=== PATIENT | male | born 1950 | race Asian ===

== ENCOUNTER → 2016-11-30 | Day surgery (SDC) | payer MEDICARE, OTHER ==
[2016-11-30] VITALS (9 sets, daily range): BP systolic 119–131; BP diastolic 62–76
[~2016-11-30] VITALS: Ht 162.6 cm; Wt 59.0 kg
[~2016-11-30] MED LIST: AMLODIPINE BESYL5 MG ORAL; LIPITOR10 MG ORAL; LISINOPRIL20 MG ORAL; LISINOPRIL5 MG ORAL; LOVASTATIN40 MG ORAL; METFORMIN HCL850 M1 ORAL; Propofol 10mg/ml 20ml IV ONE; VIREAD300 MG ORAL; VITAMIN D1000 UNI1 ORAL
--- NOTE | 2016-11-30 09:22 | Pre-Procedure Note/Attestation ---
Pre-Procedure Note/Attestation Complete Prior to Procedure Planned Procedure: not applicable Procedure Narrative: egd/colonoscopy Indications for Procedure Pre-Operative Diagnosis: adenocarcinoma Attestation I attest that I discussed the nature of the procedure; its benefits; risks and complications; and alternatives (and the risks and benefits of such alternatives ), prior to the procedure, with the patient (or the patient's legal cordage sales representative). I attest that, if there was a reasonable possibility of needing a blood transfusion, the patient (or the patient's legal cordage sales representative) was given the [facility] standardized written summary, pursuant to the Meño Sal Blood Safety Act ([place] Health and Safety Code # 1645, as amended). I attest that I re-evaluated the patient just prior to the surgery and that there has been no change in the patient's H&P, except as documented below: ADAM SIDHU Nov 30, 2016 09:22
--- NOTE | 2016-11-30 09:23 | Short Stay Surgery H&P ---
History of Present Illness History of Present Illness Chief Complaint carcinoma HPI Son Diana Alejandro is a 66 year old male who was admitted on for Liver Cancer Patient History Allergies: Coded Allergies: No Known Allergies (Unverified , 11/30/16) PAST MEDICAL HISTORY: (1) HTN (hypertension) (2) DM Past Surgeries: Social History: Medication History Scheduled Amlodipine Besylate* (Amlodipine Besylate*), 5 MG ORAL DAILY, (Reported) Atorvastatin Calcium* (Lipitor*), 10 MG ORAL DAILY, (Reported) Cholecalciferol (Vitamin D3)* (Vitamin D*), 2,000 UNITS ORAL DAILY, (Reported) Lisinopril (Lisinopril*), 5 MG ORAL DAILY, (Reported) Lisinopril (Lisinopril*), 40 MG ORAL DAILY, (Reported) Lovastatin (Lovastatin), 40 MG ORAL BEDTIME, (Reported) Metformin Hcl* (Metformin Hcl*), 850 MG ORAL DAILY, (Reported) Tenofovir Disoproxil Fumarate* (Viread*), 300 MG ORAL DAILY, (Reported) Review of Systems Cardiovascular: Reports: no symptoms Respiratory: Reports: no symptoms Skeletal: Reports: no symptoms Gastrointestinal: Reports: no symptoms Genitourinary: Reports: no symptoms Neurologic: Reports: no symptoms Endocrine: Reports: no symptoms Hematologic: Reports: no symptoms Physical Exam Vital Signs Last Vital Signs Date Time Temp Pulse Resp B/P Pulse Ox O2 Delivery O2 Flow Rate FiO2 11/30/16 08:25 98.9 72 18 131/62 97 Room Air Plan Plan of Care egd/colonoscopy Final Diagnosis: Attestation Are the patient's medical conditions optimized for surgery? Attestation Response: yes ADAM SIDHU Nov 30, 2016 09:23
--- NOTE | 2016-11-30 09:37 | Anethesia Preoperative Eval ---
Anesthesia Pre-op PMH/ROS General Date of Evaluation: Nov 30, 2016 Time of Evaluation: 09:17 Anesthesiologist: pilo ASA Score: ASA 3 Mallampati Score Class I : Soft palate, uvula, fauces, pillars visible Class II: Soft palate, uvula, fauces visible Class III: Soft palate, base of uvula visible Class IV: Only hard plate visible Mallampati Classification: Class II Surgeon: eleno Diagnosis: hepatic CA Surgical Procedure: egd/colonoscopy Anesthesia History: none Allergies: Coded Allergies: No Known Allergies (Unverified , 11/30/16) Past Medical History Cardiovascular: Reports: HTN Endocrine: Reports: DM Anesthesia Pre-op Phys. Exam Physician Exam Last Vital Signs Date Time Temp Pulse Resp B/P Pulse Ox O2 Delivery O2 Flow Rate FiO2 11/30/16 08:25 98.9 72 18 131/62 97 Room Air Airway Exam Mallampati Score: Class II Teeth: missing Anesthesia Pre-op A/P Risk Assessment & Plan Plan: propofol Status Change Before Surgery: Temo Hardy MD Nov 30, 2016 09:37
--- NOTE | 2016-11-30 09:39 | Immediate Post-Op Evaluation ---
Immediate Post-Op Evalulation Immediate Post-Op Evalulation Date of Evaluation: Nov 30, 2016 Time of Evaluation: 10:17 IV Fluids: 600 Blood Pressure Systolic: 121 Blood Pressure Diastolic: 74 Pulse Rate: 69 Respiratory Rate: 17 O2 Sat by Pulse Oximetry: 97 Temperature (Fahrenheit): 97.4 Pain Score (1-10): 0 Nausea: No Vomiting: No Complications none Patient Status: awake, patent, none Hydration Status: adequate Temo Michel MD Nov 30, 2016 09:39
--- NOTE | 2016-11-30 09:41 | 48 Hour Post Anesthesia Eval ---
Post Anesthesia Evaluation Date of Evaluation: Nov 30, 2016 Time of Evaluation: 10:50 Blood Pressure Systolic: 127 0: 75 Pulse Rate: 71 Respiratory Rate: 18 Temperature (Fahrenheit): 97.1 O2 Sat by Pulse Oximetry: 99 Airway: patent Nausea: No Vomiting: No Pain Intensity: 0 Hydration Status: adequate Cardiopulmonary Status: stable Mental Status/LOC: patient returned to baseline Follow-up Care/Observations: n/a Post-Anesthesia Complications: tolerated well Follow-up care needed: ready to discharge Temo Michel MD Nov 30, 2016 09:41
--- NOTE | 2016-11-30 10:04 | Endoscopy Procedure Note ---
Endoscopy Procedure Note Indication for Procedure: malegnancy Procedures Performed: EGD, colonoscopy Operative Findings/Diagnosis: gastritis, 2 polyps Specimen: yes Pt Tolerated Procedure Well: Yes Estimated Blood Loss: none Anesthesiologist: pilo Anesthesia: MAC Implant(s) used?: No 50 yrs or older w/o bx or poly: No 10yrs. F/U not recommended: Yes If not recommended, why?: Above average risk 10 yrs. F/U needed: Yes 18 years or older w/prev. colo: Yes <3yrs. since last colonoscopy: No ADAM SIDHU Nov 30, 2016 10:04
--- NOTE | 2016-11-30 18:18 | Procedure Note ---
DATE OF PROCEDURE: 11/30/2016 SURGEON: Arun Lynn M.D. PROCEDURE: Upper endoscopy with cold biopsy and colonoscopy with biopsy. ANESTHESIOLOGIST: Temo Michel M.D. INSTRUMENT: Olympus adult flexible colonoscope and endoscope. INDICATION: Unknown source of adenocarcinomatosis. REASON FOR PROCEDURE: The procedure, risks, benefits, and possible consequences, including hemorrhage, aspiration, perforation and infection, and alternative treatments, were explained to the patient/legal guardian by Dr. Arun Lynn and the patient/legal guardian understood and accepted these risks. DESCRIPTION OF PROCEDURE: After informed consent was obtained and the patient was adequately sedated, first Olympus upper endoscope was advanced from mouth into the second portion of the duodenum and retroflexion was performed in the stomach. The patient had diffuse gastritis. Random biopsy from antrum was obtained to rule out H. pylori infection. Otherwise, the rest of the examination was grossly within normal limits. At this time, the upper endoscope was retrieved and the patient was turned over for colonoscopy. First, a rectal exam was performed, which was positive for internal hemorrhoid. Then, the scope was advanced from the rectum into the cecum, then stopped in the terminal ileum. Quality of prep was good. The patient had normal terminal ileum. The patient had one diminutive polyp in the hepatic flexure area, removed with a cold biopsy forceps technique. In the proximal transverse colon, there was an area which was tattooed, most likely from prior polypectomies, but there was some little bit of retained polypoid material in that area, which we biopsied. The rest of the exam grossly within normal limit. Retroflexion of the rectum showed evidence of medium-sized internal hemorrhoids. SUMMARY OF FINDINGS: 1. Gastritis, status post biopsy. 2. There was an area in the proximal transverse colon with tattoo from prior polypectomy with some retained adenomatous polyp, which was biopsied. 3. One diminutive polyp in the hepatic flexure area. 4. Internal hemorrhoids. RECOMMENDATIONS: 1. Follow up biopsy and treat accordingly. 2. Recommend possible capsule endoscopy as an outpatient to rule out a small intestine malignancy. I would like to thank Dr. Tony Tai, for this kind referral. Arun Sherrell Lynn DR: DIRK JOB#: [id number] CC: Tony Tai M.D.
== END | disposition home or self-care (01) ==
LOC: GAS 07:40
DX: C80.1 Malignant (primary) neoplasm, unspecified (principal); K29.50 Unspecified chronic gastritis without bleeding; B96.81 Helicobacter pylori [H. pylori] as the cause of diseases classified elsewhere; K64.8 Other hemorrhoids; K63.5 Polyp of colon; I10 Essential (primary) hypertension; E11.9 Type 2 diabetes mellitus without complications
CPT/HCPCS: 43239; 45380; 82962; 93005; J2704; 94003; 94150

== ENCOUNTER → 2016-12-06 | Outpatient (CLI) | payer MEDICARE, OTHER ==
[~2016-12-06] MED LIST changes: -Propofol 10mg/ml 20ml IV ONE
[2016-12-06 16:32] VITALS: BP 107/64
--- NOTE | 2016-12-13 21:28 | Procedure Note ---
DATE OF PROCEDURE: 12/06/2016 CHIEF COMPLAINT: Metastatic CA and anemia. SURGEON: Arun Kauffman M.D. PROCEDURE: Capsule Endoscopy. PROCEDURES: The patient swallowed the camera. The camera spent about 12 minutes in the stomach before entering the small intestine. The camera spent 4 hour and 29 minutes in the small intestine before entering the large intestine. There was no evidence of any active bleeding. No obvious mass. No obvious tumor. No obvious any other pathology was seen on this study. The patient, as I mentioned, had the capsule pass to the colon in about 4 hours and 29 minutes. RECOMMENDATIONS: At this time, there is no obvious small-bowel mass seen on this capsule endoscopy, although these tests are not 100% and can miss if there an absolute area or if the tumor is very small, but at this time there is no obvious bleeding and no obvious mass seen on this examination. Thank you, , for this kind referral. Arun Lynn M.D. DR: KORY JOB#: [id number] CC: Reza Yoder M.D.; Fax#: [phone] Steele M.D.
== END | disposition home or self-care (01) ==
LOC: PAN 11:43
DX: D64.9 Anemia, unspecified (principal); C80.1 Malignant (primary) neoplasm, unspecified

== ENCOUNTER → 2016-12-26 | Outpatient (CLI) | payer MEDICARE, OTHER ==
[2016-12-26 14:52] VITALS: BP 125/66
--- NOTE | 2016-12-26 15:12 | GI Progress Note ---
Assessment/Plan Problems: (1) Abdominal pain ICD Codes: R10.9 - Unspecified abdominal pain SNOMED: 65523345 (2) Constipation ICD Codes: K59.00 - Constipation, unspecified SNOMED: 09773605 (3) Diarrhea ICD Codes: R19.7 - Diarrhea, unspecified SNOMED: 19715547 Status: stable Status Narrative Seen with Dr. Lynn. Assessment/Plan SB capsule reviewed with patient. >> unremarkable rx Dexilant RTC prn Subjective Subjective abdominal pain, around umbilical area 03/02. alternating constipation and diarrhea just came from chemo tx Objective Last 24 Hour Vital Signs Date Time Temp Pulse Resp B/P Pulse Ox O2 Delivery O2 Flow Rate FiO2 12/26/16 14:52 98.4 80 16 125/66 97 General Appearance: no apparent distress, alert Cardiovascular: normal rate Respiratory/Chest: normal breath sounds, no respiratory distress Abdominal Exam: normal bowel sounds, non tender, soft Extremities: normal range of motion Objective Endoscopy Procedure Note Indication for Procedure: malegnancy Procedures Performed: EGD, colonoscopy Operative Findings/Diagnosis: gastritis, 2 polyps ADAM LYNN - Nov 30, 2016 10:04 #H Pylori + #Capsule review Radha Fernández N.P. Dec 26, 2016 15:12
== END | disposition home or self-care (01) ==
LOC: PAN 14:20
DX: R10.9 Unspecified abdominal pain (principal); K59.00 Constipation, unspecified; R19.7 Diarrhea, unspecified; Z86.010 Personal history of colon polyps
CPT/HCPCS: 99211

== ENCOUNTER 2018-03-06 14:43 | Outpatient (CLI) | payer MEDICARE, OTHER ==
--- NOTE | 2018-03-07 09:33 | GI Initial Consult Note ---
History of Present Illness General Date patient seen: Mar 06, 2018 Time patient seen: 15:00 Referring physician: ANTONIO Reason for Consultation: PEG EVALUATION Present Illness HPI 68 year old male patient, whom been diagnosis with liver cancer presents today for evaluation of TPN vs PEG. Has history of EGD/colonoscopy/SBCE all last year , summary noted below. Per family, the patient is unable to tolerate PO intake. In addition, he presents abdominal pain and constipation. The patient is planned to undergo radiation, and/or amino acid therapy for his liver cancer. This patient is a fall risk, BIB both his daughters. SUMMARY OF FINDINGS - EGD/colonoscopy 2017: 1. Gastritis, status post biopsy. 2. There was an area in the proximal transverse colon with tattoo from prior polypectomy with some retained adenomatous polyp, which was biopsied. 3. One diminutive polyp in the hepatic flexure area. 4. Internal hemorrhoids. SBCE summary 2017: At this time, there is no obvious small-bowel mass seen on this capsule endoscopy, although these tests are not 100% and can miss if there an absolute area or if the tumor is very small, but at this time there is no obvious bleeding and no obvious mass seen on this examination. Home Meds Reported Medications Cholecalciferol (Vitamin D3)* (VITAMIN D*) 1,000 Unit Tablet, 2000 UNITS ORAL DAILY, #30 TAB 0 Refills 11/30/16 Atorvastatin Calcium* (LIPITOR*) 10 Mg Tablet, 10 MG ORAL DAILY, #30 TAB 0 Refills 11/30/16 Lisinopril (LISINOPRIL*) 20 Mg Tablet, 40 MG ORAL DAILY, TAB 11/30/16 Lisinopril (LISINOPRIL*) 5 Mg Tablet, 5 MG ORAL DAILY, TAB 11/30/16 Amlodipine Besylate* (AMLODIPINE BESYLATE*) 5 Mg Tablet, 5 MG ORAL DAILY, TAB 11/30/16 Lovastatin (LOVASTATIN) 40 Mg Tablet, 40 MG ORAL BEDTIME, #30 TAB 0 Refills 11/30/16 Metformin Hcl* (METFORMIN HCL*) 850 Mg Tablet, 850 MG ORAL DAILY, TAB 11/30/16 Tenofovir Disoproxil Fumarate* (VIREAD*) 300 Mg Tablet, 300 MG ORAL DAILY, #30 TAB 0 Refills 11/30/16 Med list reviewed/reconciled: Yes Allergies: Coded Allergies: No Known Allergies (Unverified , 11/30/16) Patient History Limited by: language barrier History Provided By: Family Member, Medical Record PMH Narrative HTN Hepatitis B Hemorrhoids HCC Social History: Reports: smoking - quit 20 years ago Review of Systems All Other Systems: negative except mentioned in HPI Physical Exam T 96.5 BP 116/67 P 91 94 RA Sp02 EP Interpretation: reviewed, normal General Appearance: no apparent distress, thin Head: normocephalic EENT: PERRL/EOMI, normal ENT inspection Neck: supple Respiratory: normal breath sounds, no respiratory distress Cardiovascular: normal rate Gastrointestinal: normal inspection, non tender, soft, normal bowel sounds, non -distended Rectal: deferred Genitourinary: deferred Musculoskeletal: normal inspection, back normal Neurologic: normal inspection, alert, oriented x3, responsive Psychiatric: normal inspection, judgement/insight normal, memory normal Skin: normal inspection, normal color, no rash, warm/dry, palpation normal, well hydrated Lymphatic: normal inspection, no adenopathy GI: Plan Problems: (1) HCC (hepatocellular carcinoma) (2) Hepatitis B (3) Dysphagia (4) PEG (percutaneous endoscopic gastrostomy) adjustment/replacement/removal (5) Hemorrhoid (6) Constipation (7) HTN (hypertension) Plan d/w with family that PEG will be more suitable for the patient instead of TPN, the family as agreed to placement. PEG to be scheduled 03/10/18. - NPO @ [place] day prior to procedure explained to family member. CXR ordered for pulmonary congestion r/o pneumonia Seen with Dr. Lynn. Thank you for this patient referral. The patient was seen and examined at bedside and all new and available data was reviewed in the patients chart. I agree with the above findings, impression and plan. (Patient seen earlier today. Signature stamp does not reflect patient encounter time.). - MD Jolene López AnhPatrick REACTOR FUELING SUPERVISOR Mar 07, 2018 09:33
== END 2018-03-06 15:15 | disposition home or self-care (01) ==
LOC: PAN 14:43
DX: R10.9 Unspecified abdominal pain (principal); C22.7 Other specified carcinomas of liver; B19.10 Unspecified viral hepatitis B without hepatic coma; R13.10 Dysphagia, unspecified; K64.9 Unspecified hemorrhoids; K90.0 Celiac disease; I10 Essential (primary) hypertension; Z93.1 Gastrostomy status; K59.00 Constipation, unspecified; K29.70 Gastritis, unspecified, without bleeding; Z86.010 Personal history of colon polyps; Z87.891 Personal history of nicotine dependence
CPT/HCPCS: 99202

== ENCOUNTER 2018-03-10 08:14 | Day surgery (SDC) | payer MEDICARE, MEDICAID ==
[2018-03-10] VITALS (8 sets, daily range): BP systolic 110–140; BP diastolic 68–84
[~2018-03-10] VITALS: Ht 162.6 cm; Wt 45.4 kg
[~2018-03-10 08:14] MED LIST changes: +LEVOFLOXACIN500 MG ORAL
[2018-03-10] MEDS ORDERED: Midazolam 2mg/2ml Inj ONE (09:00)
[2018-03-10] MEDS ORDERED: Lidocaine 1% MPF 10mg/ml 5ml ONE (09:00)
[2018-03-10] MEDS ORDERED: Propofol 200mg/20ml IV ONE (09:00)
[2018-03-10] MEDS ORDERED: LR 1000ml ONE (09:00)
[2018-03-10] MEDS ORDERED: LR 1000ml 1,000 ML IVLG SCH (09:23)
--- NOTE | 2018-03-10 09:26 | Pre-Procedure Note/Attestation ---
Pre-Procedure Note/Attestation Complete Prior to Procedure Planned Procedure: not applicable Procedure Narrative: esophagogastroduodenoscopy peg Indications for Procedure Pre-Operative Diagnosis: dysphagia Attestation I attest that I discussed the nature of the procedure; its benefits; risks and complications; and alternatives (and the risks and benefits of such alternatives ), prior to the procedure, with the patient (or the patient's legal product support representative). I attest that, if there was a reasonable possibility of needing a blood transfusion, the patient (or the patient's legal product support representative) was given the [facility] standardized written summary, pursuant to the Meño Sal Blood Safety Act ([place] Health and Safety Code # 1645, as amended). I attest that I re-evaluated the patient just prior to the surgery and that there has been no change in the patient's H&P, except as documented below: Arun Lynn MD Mar 10, 2018 09:26
--- NOTE | 2018-03-10 09:27 | Short Stay Surgery H&P ---
History of Present Illness History of Present Illness Chief Complaint see recent consult note HPI Son Diana Alejandro is a 68 year old male who was admitted on for Abdominal Pain Patient History Allergies: Coded Allergies: No Known Allergies (Unverified , 11/30/16) Medication History Scheduled Amlodipine Besylate* (Amlodipine Besylate*), 5 MG ORAL DAILY, (Reported) Lisinopril (Lisinopril*), 40 MG ORAL DAILY, (Reported) Tenofovir Disoproxil Fumarate* (Viread*), 300 MG ORAL DAILY, (Reported) Discontinued Medications Atorvastatin Calcium* (Lipitor*), 10 MG ORAL DAILY, (Reported) Discontinued Reason: Pt stopped taking med Cholecalciferol (Vitamin D3)* (Vitamin D*), 2,000 UNITS ORAL DAILY, (Reported) Discontinued Reason: Pt stopped taking med Lovastatin (Lovastatin), 40 MG ORAL BEDTIME, (Reported) Discontinued Reason: Pt stopped taking med Metformin Hcl* (Metformin Hcl*), 850 MG ORAL DAILY, (Reported) Discontinued Reason: Pt stopped taking med Physical Exam Vital Signs Last Vital Signs Date Time Temp Pulse Resp B/P (MAP) Pulse Ox O2 Delivery O2 Flow Rate FiO2 03/10/18 09:04 97.0 82 18 140/74 98 Room Air 97.0 Plan Attestation Are the patient's medical conditions optimized for surgery? Arun Lynn MD Mar 10, 2018 09:27
[2018-03-10] MEDS ORDERED: Norco 5mg/325mg tab ORAL PRN (09:30)
[2018-03-10] MEDS ORDERED: HYDROcodone/Acetamin 7.5/325 tab ORAL PRN (09:30)
[2018-03-10] MEDS ORDERED: Labetalol 5mg/ml 20ml vial IV PRN (09:30)
[2018-03-10] MEDS ORDERED: DiphenhydrAMINE 50mg/ml Inj IVP PRN (09:30)
[2018-03-10] MEDS ORDERED: oxyCODONE HCL/Acetaminophen 5/325mg ORAL PRN (09:30)
[2018-03-10] MEDS ORDERED: Metoclopramide 10mg/2ml Inj IVP PRN (09:30)
[2018-03-10] MEDS ORDERED: Hydromorphone 0.5mg/0.5ml inj IVP PRN (09:30)
[2018-03-10] MEDS ORDERED: LORazepam Inj 2mg/ml 1ml IV PRN (09:30)
[2018-03-10] MEDS ORDERED: Midazolam 2mg/2ml Inj IVP PRN (09:30)
[2018-03-10] MEDS ORDERED: fentaNYL 100 mcg/2 mL IV PRN (09:30)
[2018-03-10] MEDS ORDERED: Ketorolac 30mg Inj IV PRN ×2 (09:30)
[2018-03-10] MEDS ORDERED: Atropine Inj 1mg/10ml Syr IV PRN (09:30)
--- NOTE | 2018-03-10 09:40 | Endoscopy Procedure Note ---
Endoscopy Procedure Note General Indication for Procedure: ftt Procedures Performed: EGD, PEG Operative Findings/Diagnosis: same Specimen: none Pt Tolerated Procedure Well: Yes Estimated Blood Loss: none Anesthesia Anesthesiologist: triston Anesthesia: MAC Inserted Devices Implant(s) used?: No GI Core Measures 50 yrs or older w/o bx or poly: Not Applicable 10yrs. F/U not recommended: Not Applicable Arun Lynn MD Mar 10, 2018 09:40
--- NOTE | 2018-03-10 09:44 | Anethesia Preoperative Eval ---
Anesthesia Pre-op PMH/ROS General Date of Evaluation: Mar 10, 2018 Time of Evaluation: 09:13 Anesthesiologist: Vince ASA Score: ASA 4 Mallampati Score Class I : Soft palate, uvula, fauces, pillars visible Class II: Soft palate, uvula, fauces visible Class III: Soft palate, base of uvula visible Class IV: Only hard plate visible Mallampati Classification: Class II Surgeon: Shane Diagnosis: Abd Pain Surgical Procedure: PEG Anesthesia History: none Family History: no anesthesia problems Allergies: Coded Allergies: No Known Allergies (Unverified , 11/30/16) Medications: see eMAR Past Medical History Cardiovascular: Reports: HTN - LVH Neurologic/Psychiatric: Reports: depression/anxiety Endocrine: Reports: DM Hematology/Immune: Reports: other - Liver Cancer Anesthesia Pre-op Phys. Exam Physician Exam Last Vital Signs Date Time Temp Pulse Resp B/P (MAP) Pulse Ox O2 Delivery O2 Flow Rate FiO2 03/10/18 09:04 97.0 82 18 140/74 98 Room Air 97.0 Constitutional: NAD Neurologic: CN 2-12 intact Cardiovascular: RRR Respiratory: CTA Gastrointestinal: S/NT/ND Airway Exam Mallampati Score: Class II MO: limited ROM: limited Teeth: missing, intact Anesthesia Pre-op A/P Risk Assessment & Plan Assessment: ASA 4 Plan: GA Status Change Before Surgery: No Pre-Antibiotics Dru Gram Ancef IV Given Within 1 Hr of Incision: Yes Time Given: 09:25 Villa Clarke MD Mar 10, 2018 09:44
--- NOTE | 2018-03-10 09:47 | Immediate Post-Op Evaluation ---
Immediate Post-Op Evalulation Immediate Post-Op Evalulation Procedure: PEG Date of Evaluation: Mar 10, 2018 Time of Evaluation: 10:14 IV Fluids: 200 LR Blood Products: 0 Estimated Blood Loss: 3 Urinary Output: 0 Blood Pressure Systolic: 110 Blood Pressure Diastolic: 72 Pulse Rate: 94 Respiratory Rate: 16 O2 Sat by Pulse Oximetry: 100 Temperature (Fahrenheit): 98.2 Nausea: No Vomiting: No Complications 0 Patient Status: awake, reacts, patent, none Hydration Status: adequate Dru Gram Ancef IV Given Within 1 Hr of Incision: Yes Time Given: 09:25 Villa Clarke MD Mar 10, 2018 09:47
--- NOTE | 2018-03-10 09:50 | 48 Hour Post Anesthesia Eval ---
Post Anesthesia Evaluation Procedure: PEG Date of Evaluation: Mar 10, 2018 Time of Evaluation: 12:22 Blood Pressure Systolic: 122 0: 74 Pulse Rate: 87 Respiratory Rate: 18 Temperature (Fahrenheit): 98.3 O2 Sat by Pulse Oximetry: 100 Airway: patent Nausea: No Vomiting: No Pain Intensity: 1 Hydration Status: adequate Cardiopulmonary Status: Stable Mental Status/LOC: patient returned to baseline Follow-up Care/Observations: 0 Post-Anesthesia Complications: 0 Follow-up care needed: ready to discharge Villa Clarke MD Mar 10, 2018 09:50
--- NOTE | 2018-03-10 12:25 | Cardiology Report ---
APPROVED REPORT EKG Measurement Heart [id number] Normal sinus rhythm Minimal voltage criteria for LVH, may be normal variant Borderline ECG
--- NOTE | 2018-03-10 16:00 | Procedure Note ---
DATE OF PROCEDURE: 03/10/2018 SURGEON: Arun Lynn M.D. ANESTHESIOLOGIST: Dr. Clarke. PROCEDURE: Upper endoscopy with PEG placement. ANESTHESIA: Per Dr. Clarke. INSTRUMENT: Olympus adult flexible upper endoscope. INDICATION: Dysphagia, failure to thrive. The procedure, risks, benefits, and possible consequences, including hemorrhage, aspiration, perforation and infection, and alternative treatments, were explained to the patient/legal guardian by Dr. Arun Lynn and the patient/legal guardian understood and accepted these risks. DESCRIPTION OF PROCEDURE: After informed consent was obtained and the patient was adequately sedated, Olympus upper endoscope was advanced from the mouth into the second portion of the duodenum and retroflexion was performed in the stomach. Then, under endoscopic guidance and under sterile condition, a 20-[place] pull type of G-tube was successfully placed in the epigastric area. The distance from tip of the tube to skin was about 3 cm in size. The patient tolerated procedure very well without any complication. SUMMARY OF FINDINGS: Status post successful PEG placement. RECOMMENDATIONS: Abdominal binder. Elevate the head of the bed at all times. G-tube flush. G-tube care. Start tube feeding later today. Arun Lynn M.D. DR: Donte JOB#: [id number] CC:
== END 2018-03-10 12:00 | disposition home or self-care (01) ==
LOC: GAS 08:14
DX: R13.10 Dysphagia, unspecified (principal); R62.7 Adult failure to thrive; I10 Essential (primary) hypertension; F32.9 Major depressive disorder, single episode, unspecified; F41.9 Anxiety disorder, unspecified; E11.9 Type 2 diabetes mellitus without complications; Z85.05 Personal history of malignant neoplasm of liver
CPT/HCPCS: 43246; 93005; J0690; J1885; J2250; J2704; J7120; 94003; 94150

== ENCOUNTER 2018-03-12 17:33 | Inpatient (IN) | payer MEDICARE, MEDICAID ==
[~2018-03-12] VITALS: Ht 162.6 cm; Wt 44.0 kg
[2018-03-12 17:51] VITALS: BP 124/64
[2018-03-12] MEDS ORDERED: Sodium Chloride 500ML 500 ML IV ONE (17:53)
[2018-03-12] MEDS ORDERED: Pantoprazole 80 MG in NS 250 ML IV ONE (18:00)
[2018-03-12 18:35] LABS: BASOPHILS % (AUTO) 0.3 % (0.0-2.0); EOSINOPHILS % (AUTO) 0.4 % (0.0-3.0); HEMATOCRIT 32.5 % (42.0-52.0); HEMOGLOBIN 11.4 G/DL (14.2-18.0); LYMPHOCYTES % (AUTO) 3.3 % (20.0-45.0); MEAN CORPUSCULAR VOLUME 92 FL (80-99); MONOCYTES % (AUTO) 4.6 % (1.0-10.0); NEUTROPHILS % (AUTO) 91.4 % (45.0-75.0); PLATELET COUNT 375 K/UL (150-450); RED BLOOD COUNT 3.53 M/UL (4.70-6.10); RED CELL DISTRIBUTION WIDTH 13.5 % (11.6-14.8); WHITE BLOOD COUNT 16.5 K/UL (4.8-10.8)
[2018-03-12 18:45] LABS: INR 1.1 (0.9-1.1)
[2018-03-12 18:52] LABS: ANION GAP 4 mmol/L (5-15); BLOOD UREA NITROGEN 23 mg/dL (7-18); CALCIUM 8.9 MG/DL (8.5-10.1); CARBON DIOXIDE 27 MMOL/L (21-32); CHLORIDE 99 MMOL/L (98-107); CREATININE 0.7 MG/DL (0.55-1.30); POTASSIUM 4.1 MMOL/L (3.5-5.1); SODIUM 130 MMOL/L (136-145)
[2018-03-12 19:09] LABS: ALANINE AMINOTRANSFERASE 24 U/L (12-78); ALBUMIN 3.3 G/DL (3.4-5.0); ALBUMIN/GLOBULIN RATIO 0.8 (1.0-2.7); ALKALINE PHOSPHATASE 90 U/L (46-116); ASPARTATE AMINO TRANSFERASE 30 U/L (15-37); BILIRUBIN,TOTAL 2.1 MG/DL (0.2-1.0)
[2018-03-12 19:10] LABS: BILIRUBIN,DIRECT 1.1 MG/DL (0.0-0.3)
[2018-03-12] MEDS ORDERED: METOCLOPRAMIDE H5 M1 ORAL (19:14)
[2018-03-12] MEDS ORDERED: LISINOPRIL40 MG ORAL (19:14)
[2018-03-12] MEDS ORDERED: ASPIRIN EC81 MG ORAL (19:14)
[2018-03-12] MEDS ORDERED: Morphine Sulfate 4mg/ml Inj IVP ONE (19:15)
[2018-03-12] MEDS ORDERED: ZOFRAN ODT8 MG ORAL (19:27)
[2018-03-12] MEDS ORDERED: STOOL SOFTENER100 MG PO (19:27)
[2018-03-12] MEDS ORDERED: PREDNISONE10 MG ORAL (19:27)
[2018-03-12] MEDS ORDERED: OXYCONTIN10 MG ORAL (19:27)
[2018-03-12] MEDS ORDERED: MOVANTIK25 MG PO (19:29)
[2018-03-12 19:30] VITALS: BP 128/61
[2018-03-12] MEDS ORDERED: OXYCODONE HCL10 MG ORAL (19:33)
[2018-03-12 20:45] VITALS: BP 131/76
--- NOTE | 2018-03-12 21:11 | Emergency Room Report ---
History of Present Illness General Chief Complaint: Malfunctioning Gastric Tube Source: Patient Present Illness HPI 68-year-old male presents to ED for evaluation. Family at bedside states that patient is bleeding from his G-tube. Was placed on Saturday here at [facility] [place]. History of cancer. Family noted bleeding around the G-tube site along with coffee-ground articulate from the G-tube itself. He tried flushing but states that the coffee-ground material persisted. Patient notes pain, 8 out of 10, sharp, nonradiating. Denies nausea or vomiting. Denies chest pain. No other aggravating relieving factors. Denies any other associated symptoms Allergies: Coded Allergies: No Known Allergies (Unverified , 11/30/16) Patient History Past Medical History: DM, HTN Past Surgical History: other - Gtube Pertinent Family History: none Social History: Denies: smoking, alcohol use, drug use Immunizations: UTD Reviewed Nursing Documentation: PMH: Agreed; PSxH: Agreed Nursing Documentation-PMH Past Medical History: No History, Except For Hx Cardiac Problems: Yes Hx Hypertension: Yes Hx Diabetes: Yes - Type II DM Hx Cancer: Yes Hx Gastrointestinal Problems: Yes Hx Neurological Problems: No Review of Systems All Other Systems: negative except mentioned in HPI Physical Exam Vital Signs Date Time Temp Pulse Resp B/P (MAP) Pulse Ox O2 Delivery O2 Flow Rate FiO2 03/12/ 17:41 98.3 90 18 117/73 95 Room Air 98.2 Sp02 EP Interpretation: reviewed, normal General Appearance: no apparent distress, alert, GCS 15, non-toxic Head: normocephalic Eyes: bilateral eye normal inspection, bilateral eye PERRL ENT: normal ENT inspection Neck: normal inspection Respiratory: chest non-tender, lungs clear, normal breath sounds, speaking full sentences Cardiovascular #1: regular rate, rhythm, no edema Gastrointestinal: normal bowel sounds, soft, non-distended, no guarding, no rebound, tenderness, other - oozing around G tube site. coffee ground material in Gtube Rectal: deferred Genitourinary: no CVA tenderness Musculoskeletal: normal inspection Neurologic: alert, oriented x3, responsive, motor strength/tone normal, sensory intact, speech normal Psychiatric: normal inspection Skin: normal inspection Lymphatic: normal inspection Medical Decision Making Diagnostic Impression: Primary Impression: UGIB (upper gastrointestinal bleed) Additional Impression: Malfunction of percutaneous endoscopic gastrostomy (PEG) tube ER Course Hospital Course 68-year-old male presents to ED with leading around G-tube site, coffee-ground materail from Gtube Differential diagnoses include: UGIB, LGIB, surgical bleeding, coagulopathy Clinical course 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 After initial history and physical I ordered labs, IV fluids, Protonix drip Labs - noted leukocytosis, Hb/Hct stable. Na 130, remainder of electrolytes ok Case discussed with Dr. Lynn and he agreed to accept the patient to his service for further care and support I feel this is a highly complex case requiring extensive working including EKG/ Rhythm strip, Xray/CT/US, Blood/urine lab work, repeat exams while in ED, and administration of strong opiates/narcotics for pain control, admission to hospital or close patient follow up. Diagnosis - UGIB, malfunction of Gtube Patient admitted to telemetry in serious condition Labs Test 03/12/18 18:00 White Blood Count 16.5 K/UL (4.8-10.8) Red Blood Count 3.53 M/UL (4.70-6.10) Hemoglobin 11.4 G/DL (14.2-18.0) Hematocrit 32.5 % (42.0-52.0) Mean Corpuscular Volume 92 FL (80-99) Mean Corpuscular Hemoglobin 32.2 PG (27.0-31.0) Mean Corpuscular Hemoglobin Concent 35.0 G/DL (32.0-36.0) Red Cell Distribution Width 13.5 % (11.6-14.8) Platelet Count 375 K/UL (150-450) Mean Platelet Volume 6.3 FL (6.5-10.1) Neutrophils (%) (Auto) 91.4 % (45.0-75.0) Lymphocytes (%) (Auto) 3.3 % (20.0-45.0) Monocytes (%) (Auto) 4.6 % (1.0-10.0) Eosinophils (%) (Auto) 0.4 % (0.0-3.0) Basophils (%) (Auto) 0.3 % (0.0-2.0) Prothrombin Time 11.1 SEC (9.30-11.50) Prothromb Time International Ratio 1.1 (0.9-1.1) Activated Partial Thromboplast Time 31 SEC (23-33) Sodium Level 130 MMOL/L (136-145) Potassium Level 4.1 MMOL/L (3.5-5.1) Chloride Level 99 MMOL/L (98-107) Carbon Dioxide Level 27 MMOL/L (21-32) Anion Gap 4 mmol/L (5-15) Blood Urea Nitrogen 23 mg/dL (7-18) Creatinine 0.7 MG/DL (0.55-1.30) Estimat Glomerular Filtration Rate > 60 mL/min (>60) Glucose Level 142 MG/DL (74-106) Calcium Level 8.9 MG/DL (8.5-10.1) Total Bilirubin 2.1 MG/DL (0.2-1.0) Direct Bilirubin 1.1 MG/DL (0.0-0.3) Aspartate Amino Transf (AST/SGOT) 30 U/L (15-37) Alanine Aminotransferase (ALT/SGPT) 24 U/L (12-78) Alkaline Phosphatase 90 U/L (46-116) Total Protein 7.5 G/DL (6.4-8.2) Albumin 3.3 G/DL (3.4-5.0) Globulin 4.2 g/dL Albumin/Globulin Ratio 0.8 (1.0-2.7) Lipase 190 U/L (73-393) Last Vital Signs Date Time Temp Pulse Resp B/P (MAP) Pulse Ox O2 Delivery O2 Flow Rate FiO2 03/12/18 19:51 98.2 03/12/18 19:30 77 12 128/61 96 Room Air Status: improved Disposition: ADMITTED INPATIENT Condition: Serious Referrals: Zainab Lopez MD (PCP) David Garcia MD Mar 12, 2018 21:11
[2018-03-13] VITALS (7 sets, daily range): BP systolic 120–132; BP diastolic 68–72
[2018-03-13] MEDS: Morphine Sulfate 2mg/ml Inj IVP PRN ×4 (03:26→22:53)
[2018-03-13] MEDS ORDERED: Pantoprazole 80 MG in NS 250 ML IV SCH ×3 (05:00)
[2018-03-13 05:52] LABS: HEMATOCRIT 30.9 % (42.0-52.0); HEMOGLOBIN 10.7 G/DL (14.2-18.0); MEAN CORPUSCULAR VOLUME 92 FL (80-99); PLATELET COUNT 288 K/UL (150-450); RED BLOOD COUNT 3.35 M/UL (4.70-6.10); RED CELL DISTRIBUTION WIDTH 13.3 % (11.6-14.8); WHITE BLOOD COUNT 12.7 K/UL (4.8-10.8)
[2018-03-13 05:57] LABS: ANION GAP 8 mmol/L (5-15); BLOOD UREA NITROGEN 21 mg/dL (7-18); CALCIUM 8.6 MG/DL (8.5-10.1); CARBON DIOXIDE 24 MMOL/L (21-32); CHLORIDE 99 MMOL/L (98-107); CREATININE 0.6 MG/DL (0.55-1.30); POTASSIUM 4.3 MMOL/L (3.5-5.1); SODIUM 131 MMOL/L (136-145)
--- NOTE | 2018-03-13 09:58 | History and Physical ---
History of Present Illness General Date patient seen: Mar 13, 2018 Time patient seen: 09:58 Reason for Hospitalization: Malfunctioning Gastric Tube Present Illness HPI 68 year old male patient, s/p PEG this past saturday presents today with c/o of GI bleeding from the G tube and around the puncture site. Family noted bleeding around the G-tube site along with coffee-ground articulate from the G-tube itself. He tried flushing but states that the coffee-ground material persisted. Patient notes pain, 8 out of 10, sharp, nonradiating. Denies nausea or vomiting. Denies chest pain. No other aggravating relieving factors. Denies any other associated symptoms. Has history of EGD/colonoscopy/ SBCE all last year, summary noted below. Per family, the patient is unable to tolerate PO intake. In addition, he presents abdominal pain and constipation. The patient is planned to undergo radiation, and/or amino acid therapy for his liver cancer. The GT site was assessed with no noted bleeding around the site. I performed a gastric lavage at bedside and noted no additional bleeding as well. The patient presents with mild anemia and hyponatremia. No hypercoagulation noted. Allergies: Coded Allergies: No Known Allergies (Unverified , 11/30/16) Medication History Scheduled Amlodipine Besylate* (Amlodipine Besylate*), 5 MG ORAL DAILY, (Reported) Aspirin Ec* (Aspirin Ec*), 81 MG ORAL DAILY, (Reported) Levofloxacin (Levofloxacin*), 500 MG ORAL DAILY, (Reported) Lisinopril* (Lisinopril*), 40 MG ORAL DAILY, (Reported) Metoclopramide Hcl* (Metoclopramide Hcl*), 5 MG ORAL THREE TIMES A DAY, ( Reported) Naloxegol Oxalate (Movantik), 25 MG PO DAILY, (Reported) Prednisone* (Prednisone*), 10 MG ORAL BID, (Reported) Tenofovir Disoproxil Fumarate* (Viread*), 300 MG ORAL DAILY, (Reported) Scheduled PRN Ondansetron Odt* (Zofran Odt*), 8 MG ORAL Q6H PRN for Nausea & Vomiting, ( Reported) Oxycodone Hcl Er* (Oxycontin*), 10 MG ORAL Q8HR PRN for For Pain, (Reported) Oxycodone Hcl* (Oxycodone Hcl*), 10 MG ORAL Q2H PRN for For Pain, (Reported) Discontinued Medications Atorvastatin Calcium* (Lipitor*), 10 MG ORAL DAILY, (Reported) Discontinued Reason: Pt stopped taking med Cholecalciferol (Vitamin D3)* (Vitamin D*), 2,000 UNITS ORAL DAILY, (Reported) Discontinued Reason: Pt stopped taking med Docusate Sodium (Stool Softener), 100 MG PO QHS PRN for Constipation, (Reported) Discontinued Reason: Pt stopped taking med Lovastatin (Lovastatin), 40 MG ORAL BEDTIME, (Reported) Discontinued Reason: Pt stopped taking med Metformin Hcl* (Metformin Hcl*), 850 MG ORAL DAILY, (Reported) Discontinued Reason: Pt stopped taking med Patient History History Provided By: Patient, Medical Record Healthcare decision maker N Resuscitation status Full Code Advanced Directive on File Patient History Narrative HTN Hepatitis B Hemorrhoids HCC Social History: Reports: smoking - quit 20 years ago ?DM SUMMARY OF FINDINGS - EGD/colonoscopy 2017: 1. Gastritis, status post biopsy. 2. There was an area in the proximal transverse colon with tattoo from prior polypectomy with some retained adenomatous polyp, which was biopsied. 3. One diminutive polyp in the hepatic flexure area. 4. Internal hemorrhoids. SBCE summary 2017: At this time, there is no obvious small-bowel mass seen on this capsule endoscopy, although these tests are not 100% and can miss if there an absolute area or if the tumor is very small, but at this time there is no obvious bleeding and no obvious mass seen on this examination. Review of Systems All Other Systems: negative except mentioned in HPI Physical Exam General Appearance: no apparent distress, alert, thin Lines, tubes and drains: gtube HEENT: normocephalic, anicteric Neck: non-tender, normal alignment, supple, normal inspection Respiratory/Chest: lungs clear, normal breath sounds, no respiratory distress Cardiovascular/Chest: normal rate Abdomen: normal bowel sounds, non tender, soft, other - GT, see HPI. 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, no motor/sensory deficits, alert, oriented x 3 Last 24 Hour Vital Signs Date Time Temp Pulse Resp B/P (MAP) Pulse Ox O2 Delivery O2 Flow Rate FiO2 03/13/18 08:00 79 03/13/18 08:00 96.6 80 20 126/70 95 Room Air 96.6 03/13/18 06:09 97.4 77 16 121/70 97 Room Air 97.4 03/13/18 06:00 75 03/13/18 04:00 97.4 77 16 121/70 97 Room Air 97.4 03/13/18 00:00 97.4 76 16 131/71 94 Room Air 97.4 03/13/18 00:00 74 03/12/18 21:09 78 03/12/18 20:45 97.5 79 18 131/76 94 Room Air 97.5 03/12/18 20:35 98.2 77 12 128/61 96 Room Air 98.2 03/12/18 19:51 98.2 03/12/18 19:30 77 12 128/61 96 Room Air 03/12/18 19:21 98.2 03/12/18 17:51 98.2 79 15 124/64 96 Room Air 98.2 03/12/18 17:41 98.3 90 18 117/73 95 Room Air 98.2 Intake and Output 03/12/18 03/13/18 19:00 07:00 Intake Total 0 ml 25 ml Balance 0 ml 25 ml Intake Oral 0 ml IV Total 25 ml # Voids 3 Laboratory Tests Test 03/12/18 18:00 03/13/18 05:09 White Blood Count 16.5 K/UL (4.8-10.8) H 12.7 K/UL (4.8-10.8) H Red Blood Count 3.53 M/UL (4.70-6.10) L 3.35 M/UL (4.70-6.10) L Hemoglobin 11.4 G/DL (14.2-18.0) L 10.7 G/DL (14.2-18.0) L Hematocrit 32.5 % (42.0-52.0) L 30.9 % (42.0-52.0) L Mean Corpuscular Volume 92 FL (80-99) 92 FL (80-99) Mean Corpuscular Hemoglobin 32.2 PG (27.0-31.0) H 32.0 PG (27.0-31.0) H Mean Corpuscular Hemoglobin Concent 35.0 G/DL (32.0-36.0) 34.7 G/DL (32.0-36.0) Red Cell Distribution Width 13.5 % (11.6-14.8) 13.3 % (11.6-14.8) Platelet Count 375 K/UL (150-450) 288 K/UL (150-450) Mean Platelet Volume 6.3 FL (6.5-10.1) L 6.3 FL (6.5-10.1) L Neutrophils (%) (Auto) 91.4 % (45.0-75.0) H % (45.0-75.0) Lymphocytes (%) (Auto) 3.3 % (20.0-45.0) L % (20.0-45.0) Monocytes (%) (Auto) 4.6 % (1.0-10.0) % (1.0-10.0) Eosinophils (%) (Auto) 0.4 % (0.0-3.0) % (0.0-3.0) Basophils (%) (Auto) 0.3 % (0.0-2.0) % (0.0-2.0) Prothrombin Time 11.1 SEC (9.30-11.50) 10.9 SEC (9.30-11.50) Prothromb Time International Ratio 1.1 (0.9-1.1) 1.0 (0.9-1.1) Activated Partial Thromboplast Time 31 SEC (23-33) Sodium Level 130 MMOL/L (136-145) L 131 MMOL/L (136-145) L Potassium Level 4.1 MMOL/L (3.5-5.1) 4.3 MMOL/L (3.5-5.1) Chloride Level 99 MMOL/L (98-107) 99 MMOL/L (98-107) Carbon Dioxide Level 27 MMOL/L (21-32) 24 MMOL/L (21-32) Anion Gap 4 mmol/L (5-15) L 8 mmol/L (5-15) Blood Urea Nitrogen 23 mg/dL (7-18) H 21 mg/dL (7-18) H Creatinine 0.7 MG/DL (0.55-1.30) 0.6 MG/DL (0.55-1.30) Estimat Glomerular Filtration Rate > 60 mL/min (>60) > 60 mL/min (>60) Glucose Level 142 MG/DL (74-106) H 115 MG/DL (74-106) H Calcium Level 8.9 MG/DL (8.5-10.1) 8.6 MG/DL (8.5-10.1) Total Bilirubin 2.1 MG/DL (0.2-1.0) H Direct Bilirubin 1.1 MG/DL (0.0-0.3) H Aspartate Amino Transf (AST/SGOT) 30 U/L (15-37) Alanine Aminotransferase (ALT/SGPT) 24 U/L (12-78) Alkaline Phosphatase 90 U/L (46-116) Total Protein 7.5 G/DL (6.4-8.2) Albumin 3.3 G/DL (3.4-5.0) L Globulin 4.2 g/dL Albumin/Globulin Ratio 0.8 (1.0-2.7) L Lipase 190 U/L (73-393) Differential Total Cells Counted 100 Neutrophils % (Manual) 91 % (45-75) H Lymphocytes % (Manual) 5 % (20-45) L Monocytes % (Manual) 2 % (1-10) Eosinophils % (Manual) 2 % (0-3) Basophils % (Manual) 0 % (0-2) Band Neutrophils 0 % (0-8) Platelet Estimate Adequate Platelet Morphology Normal Hypochromasia 1+ Anisocytosis 1+ Height (Feet): 5 Height (Inches): 4.00 Weight (Pounds): 97 Medications Current Medications Medications (Trade) Dose Ordered Sig/Tatyana Route PRN Reason Start Time Stop Time Status Last Admin Dose Admin Morphine Sulfate (Morphine Sulfate) 2 mg Q4H PRN IVP For Severe Pain 7-10 03/13/18 03:15 03/20/18 03:14 03/13/18 08:31 Ondansetron HCl (Zofran) 4 mg Q6H IVP 03/12/18 22:00 04/11/18 21:59 03/13/18 00:17 Oxycodone HCl (OxyCONTIN) 10 mg Q12HR ORAL 03/13/18 09:00 03/20/18 08:59 Oxycodone HCl (Roxicodone) 10 mg EVERY 3 HOURS ORAL 03/13/18 09:00 03/20/18 08:59 Pantoprazole 80 mg/Sodium Chloride 250 ml @ 25 mls/hr Q10H IV 03/13/18 05:00 04/12/18 04:59 03/13/18 05:19 Prednisone (predniSONE) 10 mg BID ORAL 03/12/18 21:00 04/11/18 20:59 03/13/18 00:29 Assessment/Plan Problem List: (1) GI bleed ICD Codes: K92.2 - Gastrointestinal hemorrhage, unspecified SNOMED: 97040713 (2) Therapeutic opioid-induced constipation (OIC) ICD Codes: K59.03 - Drug induced constipation; T40.2X5A - Adverse effect of other opioids, initial encounter SNOMED: 675421971084713 (3) Malfunction of percutaneous endoscopic gastrostomy (PEG) tube ICD Codes: K94.23 - Gastrostomy malfunction SNOMED: 485638791 (4) Hepatitis B ICD Codes: B19.10 - Unspecified viral hepatitis B without hepatic coma SNOMED: 99683110 (5) HCC (hepatocellular carcinoma) ICD Codes: C22.0 - Liver cell carcinoma SNOMED: 935905926 (6) Dysphagia ICD Codes: R13.10 - Dysphagia, unspecified SNOMED: 07191626, 474815696 (7) Constipation ICD Codes: K59.00 - Constipation, unspecified SNOMED: 51408884 (8) Abdominal pain ICD Codes: R10.9 - Unspecified abdominal pain SNOMED: 61390265 (9) Severe malnutrition ICD Codes: E43 - Unspecified severe protein-calorie malnutrition SNOMED: 36303079 (10) Dehydration ICD Codes: E86.0 - Dehydration SNOMED: 46188749 Status: stable Status Narrative Discussed with Dr. Lynn. Assessment/Plan stable H&H gastric lavage >> no noted heme no hypercoagulability will dc protonix gtt at this time, change to BID begin GTFs per RD, start low to goal low dose reglan ATC, will consider increase if patient does not tolerate ST ordered to evaluate for oral gratification pain mgmt start patient on bowel regime >> will consider Relistor if patient does not have BM for OIC monitor H&H, prn transfusion GT site care daily/prn IV/PO hydration electrolyte correction fu labs, Hg A1C needs outpatient H. Pylori treatment Discussed with Dr. Lynn. The patient was seen and examined at bedside and all new and available data was reviewed in the patients chart. I agree with the above findings, impression and plan. (Patient seen earlier today. Signature stamp does not reflect patient encounter time.). - MD Jolene LópezRadha-Ziggy ANGY Mar 13, 2018 09:58
[2018-03-13] MEDS: oxyCODONE 5mg IR tab ORAL SCH ×5 (09:59→20:32)
[2018-03-13] MEDS ORDERED: Metoclopramide 10mg/2ml Inj IVP PRN (10:00)
[2018-03-13] MEDS: oxyCONTIN 10mg tab ORAL SCH ×2 (10:00→20:31)
[2018-03-13] MEDS ORDERED: Relistor 12mg/0.6ml Vial SUBQ ONE (14:00)
[2018-03-13] MEDS: Docusate 100mg cap ORAL SCH (17:57)
[2018-03-13] MEDS ORDERED: LISINOPRIL40 MG GT (19:10)
[2018-03-13] MEDS ORDERED: AMLODIPINE BESYL5 MG GT (19:10)
[2018-03-13] MEDS: Pantoprazole Inj IVP SCH (20:30)
[2018-03-13] MEDS: Miralax 17gm pkt ORAL SCH (20:30)
[2018-03-14] VITALS: BP 116/68
[2018-03-14] MEDS: oxyCODONE 5mg IR tab ORAL SCH ×9 (00:41→21:34)
[2018-03-14 04:00] VITALS: BP 115/70
[2018-03-14 06:25] LABS: HEMATOCRIT 31.9 % (42.0-52.0); HEMOGLOBIN 10.9 G/DL (14.2-18.0); MEAN CORPUSCULAR VOLUME 92 FL (80-99); PLATELET COUNT 387 K/UL (150-450); RED BLOOD COUNT 3.48 M/UL (4.70-6.10); RED CELL DISTRIBUTION WIDTH 13.4 % (11.6-14.8); WHITE BLOOD COUNT 14.1 K/UL (4.8-10.8)
[2018-03-14 06:54] LABS: % IRON SATURATION 71 % (15-50); IRON 88 ug/dL (50-175); TOTAL IRON BINDING CAPACITY 124 ug/dL (250-450)
[2018-03-14 07:03] LABS: ANION GAP 6 mmol/L (5-15); BLOOD UREA NITROGEN 21 mg/dL (7-18); CALCIUM 8.5 MG/DL (8.5-10.1); CARBON DIOXIDE 27 MMOL/L (21-32); CHLORIDE 95 MMOL/L (98-107); CREATININE 0.7 MG/DL (0.55-1.30); FERRITIN 625 NG/ML (8-388); PHOSPHORUS 3.2 MG/DL (2.5-4.9); POTASSIUM 4.8 MMOL/L (3.5-5.1); SODIUM 128 MMOL/L (136-145)
[2018-03-14 08:00] VITALS: BP 127/60
[2018-03-14] MEDS: Docusate 100mg cap ORAL SCH ×2 (08:59→18:09)
[2018-03-14] MEDS: Pantoprazole Inj IVP SCH ×2 (08:59→21:34)
[2018-03-14] MEDS: Lisinopril 20mg tab ORAL SCH (09:01)
[2018-03-14] MEDS: oxyCONTIN 10mg tab ORAL SCH ×2 (09:02→21:34)
[2018-03-14] MEDS ORDERED: D5 1/2NS w/KCl 20mEq 1,000 ML IV SCH (09:45)
--- NOTE | 2018-03-14 10:14 | GI Progress Note ---
Assessment/Plan Problems: (1) GI bleed ICD Codes: K92.2 - Gastrointestinal hemorrhage, unspecified SNOMED: 91731493 (2) Therapeutic opioid-induced constipation (OIC) ICD Codes: K59.03 - Drug induced constipation; T40.2X5A - Adverse effect of other opioids, initial encounter SNOMED: 504614077053797 (3) Malfunction of percutaneous endoscopic gastrostomy (PEG) tube ICD Codes: K94.23 - Gastrostomy malfunction SNOMED: 279919784 (4) Hepatitis B ICD Codes: B19.10 - Unspecified viral hepatitis B without hepatic coma SNOMED: 36498994 (5) HCC (hepatocellular carcinoma) ICD Codes: C22.0 - Liver cell carcinoma SNOMED: 387041473 (6) Dysphagia ICD Codes: R13.10 - Dysphagia, unspecified SNOMED: 20434401, 844759158 (7) Constipation ICD Codes: K59.00 - Constipation, unspecified SNOMED: 49309095 (8) Abdominal pain ICD Codes: R10.9 - Unspecified abdominal pain SNOMED: 11531774 (9) Severe malnutrition ICD Codes: E43 - Unspecified severe protein-calorie malnutrition SNOMED: 17266101 (10) Dehydration ICD Codes: E86.0 - Dehydration SNOMED: 65092948 Status: unchanged Status Narrative Discussed with Dr. Lynn. Assessment/Plan stable H&H gastric lavage >> no noted heme GT site bleed around the site no hypercoagulability continues to have nausea and emesis d/w with ST >> outpatient video swallow no BM greater than 1 week Hg A1C >> WNL ordered KUB fleets x 1 hold GTFs, begin IVFs increase reglan dosage pain mgmt Relistor monitor H&H, prn transfusion GT site care daily/prn IV/PO hydration electrolyte correction fu labs, Hg A1C needs outpatient H. Pylori treatment The patient was seen and examined at bedside and all new and available data was reviewed in the patients chart. I agree with the above findings, impression and plan. (Patient seen earlier today. Signature stamp does not reflect patient encounter time.). - Arun Lynn MD Subjective Subjective nausea kramer episode of emesis yesterday Objective Last 24 Hour Vital Signs Date Time Temp Pulse Resp B/P (MAP) Pulse Ox O2 Delivery O2 Flow Rate FiO2 03/14/18 09:01 127/60 03/14/18 09:01 79 127/60 03/14/18 04:00 74 03/14/18 04:00 98.0 77 18 115/70 98 Room Air 98.0 03/14/18 00:00 75 03/14/18 00:00 98.0 74 20 116/68 97 Room Air 98.0 03/13/18 20:00 76 03/13/18 20:00 97.9 75 18 132/72 97 Room Air 97.9 03/13/18 16:00 77 03/13/18 16:00 97.6 80 20 120/72 96 Room Air 97.6 03/13/18 12:00 76 03/13/18 12:00 97.7 75 20 126/68 96 Room Air 97.7 Intake and Output 03/13/18 03/14/18 19:00 07:00 Intake Total 25 ml 500 ml Output Total 375 ml Balance 25 ml 125 ml Free Water 150 ml IV Total 25 ml Tube Feeding 250 ml Other 100 ml Output Urine Total 175 ml Emesis 200 ml # Voids 5 Laboratory Tests Test 03/14/18 05:35 White Blood Count 14.1 K/UL (4.8-10.8) H Red Blood Count 3.48 M/UL (4.70-6.10) L Hemoglobin 10.9 G/DL (14.2-18.0) L Hematocrit 31.9 % (42.0-52.0) L Mean Corpuscular Volume 92 FL (80-99) Mean Corpuscular Hemoglobin 31.5 PG (27.0-31.0) H Mean Corpuscular Hemoglobin Concent 34.3 G/DL (32.0-36.0) Red Cell Distribution Width 13.4 % (11.6-14.8) Platelet Count 387 K/UL (150-450) Mean Platelet Volume 6.7 FL (6.5-10.1) Neutrophils (%) (Auto) % (45.0-75.0) Lymphocytes (%) (Auto) % (20.0-45.0) Monocytes (%) (Auto) % (1.0-10.0) Eosinophils (%) (Auto) % (0.0-3.0) Basophils (%) (Auto) % (0.0-2.0) Sodium Level 128 MMOL/L (136-145) L Potassium Level 4.8 MMOL/L (3.5-5.1) Chloride Level 95 MMOL/L (98-107) L Carbon Dioxide Level 27 MMOL/L (21-32) Anion Gap 6 mmol/L (5-15) Blood Urea Nitrogen 21 mg/dL (7-18) H Creatinine 0.7 MG/DL (0.55-1.30) Estimat Glomerular Filtration Rate > 60 mL/min (>60) Glucose Level 91 MG/DL (74-106) Hemoglobin A1c 4.9 % (4.3-6.0) Calcium Level 8.5 MG/DL (8.5-10.1) Phosphorus Level 3.2 MG/DL (2.5-4.9) Magnesium Level 2.0 MG/DL (1.8-2.4) Iron Level 88 ug/dL (50-175) Total Iron Binding Capacity 124 ug/dL (250-450) L Percent Iron Saturation 71 % (15-50) H Unsaturated Iron Binding 36 ug/dL (112-346) L Ferritin 625 NG/ML (8-388) H Vitamin B12 Level > 2000 PG/ML (193-986) H Folate 8.9 NG/ML (8.6-58.9) Thyroid Stimulating Hormone (TSH) 0.495 uiU/mL (0.358-3.740) Free Thyroxine 1.22 NG/DL (0.76-1.46) Height (Feet): 5 Height (Inches): 4.00 Weight (Pounds): 97 General Appearance: WD/WN, no apparent distress, alert, thin Cardiovascular: normal rate Respiratory/Chest: normal breath sounds, no respiratory distress Abdominal Exam: normal bowel sounds, non tender, soft, GT site - bleeding around the site Extremities: non-tender Flori Fernández NP Mar 14, 2018 10:14
[2018-03-14] MEDS ORDERED: Morphine Sulfate 2mg/ml Inj IVP PRN (10:15)
[2018-03-14] MEDS ORDERED: Fleet's Enema 133ml RECTAL ONE ×2 (10:30→16:00)
[2018-03-14] MEDS: D5 1/2NS w/KCl 20mEq 1,000 ML IV SCH (10:57)
--- NOTE | 2018-03-14 11:46 | Diagnostic Imaging Report ---
Indication: Abdominal pain Technique: Supine view of the abdomen Comparison: none Findings: Bowel gas pattern is unremarkable. There is a gastrostomy. There are degenerative changes of the lumbar spine Impression: No acute process
[2018-03-14 12:00] VITALS: BP 134/71
[2018-03-14] MEDS ORDERED: Lactulose 20gm/30ml UDC ORAL SCH (13:00)
[2018-03-14 16:00] VITALS: BP 123/65
[2018-03-14] MEDS: Metoclopramide 10mg/2ml Inj IVP SCH (18:26)
[2018-03-14 20:00] VITALS: BP 112/62
[2018-03-14] MEDS: Miralax 17gm pkt ORAL SCH (21:35)
[2018-03-15] VITALS: BP 110/67
[2018-03-15] MEDS: D5 1/2NS w/KCl 20mEq 1,000 ML IV SCH ×2 (00:08→13:28)
[2018-03-15] MEDS: oxyCODONE 5mg IR tab ORAL SCH ×5 (00:09→11:34)
[2018-03-15] MEDS: Metoclopramide 10mg/2ml Inj IVP SCH ×4 (03:09→21:16)
[2018-03-15 04:00] VITALS: BP 114/66
[2018-03-15 07:06] LABS: HEMATOCRIT 38.5 % (42.0-52.0); HEMOGLOBIN 12.9 G/DL (14.2-18.0); MEAN CORPUSCULAR VOLUME 93 FL (80-99); PLATELET COUNT 426 K/UL (150-450); RED BLOOD COUNT 4.14 M/UL (4.70-6.10); RED CELL DISTRIBUTION WIDTH 13.3 % (11.6-14.8); WHITE BLOOD COUNT 12.3 K/UL (4.8-10.8)
[2018-03-15 07:26] LABS: ANION GAP 7 mmol/L (5-15); BLOOD UREA NITROGEN 17 mg/dL (7-18); CARBON DIOXIDE 28 MMOL/L (21-32); CHLORIDE 96 MMOL/L (98-107); CREATININE 0.8 MG/DL (0.55-1.30); PHOSPHORUS 2.9 MG/DL (2.5-4.9); POTASSIUM 4.7 MMOL/L (3.5-5.1); SODIUM 131 MMOL/L (136-145)
[2018-03-15 08:00] VITALS: BP 124/71
[2018-03-15] MEDS: Docusate 100mg cap ORAL SCH (08:42)
[2018-03-15] MEDS: oxyCONTIN 10mg tab ORAL SCH ×3 (08:43→21:16)
[2018-03-15] MEDS: Pantoprazole Inj IVP SCH ×2 (08:43→21:16)
[2018-03-15] MEDS: Lisinopril 20mg tab ORAL SCH (08:43)
--- NOTE | 2018-03-15 10:02 | General Progress Note ---
Assessment/Plan Problem List: (1) Dehydration ICD Codes: E86.0 - Dehydration SNOMED: 18139069 (2) GI bleed ICD Codes: K92.2 - Gastrointestinal hemorrhage, unspecified SNOMED: 81023986 (3) Hepatitis B ICD Codes: B19.10 - Unspecified viral hepatitis B without hepatic coma SNOMED: 02477956 (4) Abdominal pain ICD Codes: R10.9 - Unspecified abdominal pain SNOMED: 41810171 (5) Constipation ICD Codes: K59.00 - Constipation, unspecified SNOMED: 55407212 (6) HTN (hypertension) ICD Codes: I10 - Essential (primary) hypertension SNOMED: 75372462 (7) PEG (percutaneous endoscopic gastrostomy) adjustment/replacement/removal ICD Codes: Z43.1 - Encounter for attention to gastrostomy SNOMED: 833400739, 939549799 Assessment/Plan start clears change TF to 2.0 at goal of 35 increase reglan to Q^ another trial of relistor repeat labs consider dc ivf tomorrow Subjective ROS Limited/Unobtainable: Yes Allergies: Coded Allergies: No Known Allergies (Unverified , 11/30/16) Subjective feeling better Objective Last 24 Hour Vital Signs Date Time Temp Pulse Resp B/P (MAP) Pulse Ox O2 Delivery O2 Flow Rate FiO2 03/15/18 08:43 124/71 03/15/18 08:43 81 124/71 03/15/18 08:00 97.7 81 19 124/71 97 Room Air 97.7 03/15/18 08:00 77 03/15/18 04:00 75 03/15/18 04:00 97.6 78 20 114/66 96 Room Air 97.6 03/15/18 00:00 97.7 78 20 110/67 98 Room Air 97.7 03/15/18 00:00 72 03/14/18 20:00 81 03/14/18 20:00 97.7 78 18 112/62 97 Room Air 97.7 03/14/18 16:00 79 03/14/18 16:00 97.4 80 20 123/65 97 Room Air 97.4 03/14/18 12:00 83 03/14/18 12:00 98.0 77 20 134/71 95 Room Air 98.0 Intake and Output 03/14/18 03/15/18 19:00 07:00 Intake Total 280 ml 95 ml Balance 280 ml 95 ml Free Water 60 ml 60 ml Tube Feeding 20 ml 35 ml Other 200 ml # Voids 3 # Bowel Movements 1 1 Laboratory Tests 03/15/18 06:40: White Blood Count 12.3H, Red Blood Count 4.14L, Hemoglobin 12.9L, Hematocrit 38.5L, Mean Corpuscular Volume 93, Mean Corpuscular Hemoglobin 31.2H, Mean Corpuscular Hemoglobin Concent 33.6, Red Cell Distribution Width 13.3, Platelet Count 426, Mean Platelet Volume 6.9, Neutrophils (%) (Auto) , Lymphocytes (%) ( Auto) , Monocytes (%) (Auto) , Eosinophils (%) (Auto) , Basophils (%) (Auto) , Differential Total Cells Counted 100, Neutrophils % (Manual) 91H, Lymphocytes % (Manual) 2L, Monocytes % (Manual) 7, Eosinophils % (Manual) 0, Basophils % ( Manual) 0, Band Neutrophils 0, Platelet Estimate Adequate, Platelet Morphology Normal, Anisocytosis 1+, Schistocytes 1+, Sodium Level 131L, Potassium Level 4.7 , Chloride Level 96L, Carbon Dioxide Level 28, Anion Gap 7, Blood Urea Nitrogen 17, Creatinine 0.8, Estimat Glomerular Filtration Rate > 60, Glucose Level 97, Calcium Level 9.0, Phosphorus Level 2.9, Magnesium Level 2.3 Height (Feet): 5 Height (Inches): 4.00 Weight (Pounds): 97 General Appearance: alert EENT: normal ENT inspection Neck: supple Cardiovascular: normal rate Respiratory/Chest: lungs clear Abdomen: non tender Extremities: non-tender Arun Lynn MD Mar 15, 2018 10:02
[2018-03-15] MEDS ORDERED: Sterile Water Irrig 1000ml IRRIG ONE (11:42)
[2018-03-15] MEDS ORDERED: NS 275ml ONE (11:42)
[2018-03-15 12:00] VITALS: BP 124/70
[2018-03-15] MEDS: oxyCODONE 5mg IR tab GT SCH ×4 (15:35→23:44)
[2018-03-15 16:00] VITALS: BP 108/63
[2018-03-15] MEDS ORDERED: Sterile Water For Irrig 2000ml IRRIG ONE (16:34)
[2018-03-15] MEDS: Docusate 100mg/10ml Liq GT SCH (17:48)
[2018-03-15 20:00] VITALS: BP 115/63
[2018-03-15] MEDS: Miralax 17gm pkt ORAL SCH (21:17)
[2018-03-16] VITALS: BP 130/74
[2018-03-16] MEDS: D5 1/2NS w/KCl 20mEq 1,000 ML IV SCH ×2 (02:44→17:20)
[2018-03-16] MEDS: oxyCODONE 5mg IR tab GT SCH ×4 (02:44→11:20)
[2018-03-16 04:00] VITALS: BP 122/59
[2018-03-16] MEDS: Metoclopramide 10mg/2ml Inj IVP SCH ×3 (05:58→21:23)
[2018-03-16 08:00] VITALS: BP 118/66
[2018-03-16 08:37] LABS: HEMATOCRIT 32.8 % (42.0-52.0); HEMOGLOBIN 11.3 G/DL (14.2-18.0); MEAN CORPUSCULAR VOLUME 92 FL (80-99); PLATELET COUNT 299 K/UL (150-450); RED BLOOD COUNT 3.55 M/UL (4.70-6.10); RED CELL DISTRIBUTION WIDTH 13.4 % (11.6-14.8); WHITE BLOOD COUNT 17.9 K/UL (4.8-10.8)
[2018-03-16] MEDS: Docusate 100mg/10ml Liq GT SCH ×2 (08:39→17:20)
[2018-03-16] MEDS: Pantoprazole Inj IVP SCH ×2 (08:39→21:23)
[2018-03-16] MEDS: oxyCONTIN 10mg tab ORAL SCH (08:40)
[2018-03-16] MEDS: Lisinopril 20mg tab GT SCH (08:40)
[2018-03-16] MEDS ORDERED: Relistor 12mg/0.6ml Vial SUBQ SCH (09:00)
[2018-03-16 09:02] LABS: ANION GAP 5 mmol/L (5-15); BLOOD UREA NITROGEN 12 mg/dL (7-18); CALCIUM 8.6 MG/DL (8.5-10.1); CARBON DIOXIDE 26 MMOL/L (21-32); CHLORIDE 99 MMOL/L (98-107); CREATININE 0.7 MG/DL (0.55-1.30); POTASSIUM 4.4 MMOL/L (3.5-5.1); SODIUM 130 MMOL/L (136-145)
--- NOTE | 2018-03-16 09:30 | General Progress Note ---
Assessment/Plan Problem List: (1) Dehydration ICD Codes: E86.0 - Dehydration SNOMED: 61076650 (2) GI bleed ICD Codes: K92.2 - Gastrointestinal hemorrhage, unspecified SNOMED: 11350575 (3) Hepatitis B ICD Codes: B19.10 - Unspecified viral hepatitis B without hepatic coma SNOMED: 21163114 (4) Abdominal pain ICD Codes: R10.9 - Unspecified abdominal pain SNOMED: 08564210 (5) Constipation ICD Codes: K59.00 - Constipation, unspecified SNOMED: 74433171 (6) HTN (hypertension) ICD Codes: I10 - Essential (primary) hypertension SNOMED: 56018976 (7) PEG (percutaneous endoscopic gastrostomy) adjustment/replacement/removal ICD Codes: Z43.1 - Encounter for attention to gastrostomy SNOMED: 258335650, 675677550 Assessment/Plan change TF to 2.0 at goal of 35 cont reglan relistor as needed bowel regimen repeat labs+ phos pain consult CXR ua Subjective ROS Limited/Unobtainable: Yes Allergies: Coded Allergies: No Known Allergies (Unverified , 11/30/16) Subjective abd pain vomited once had BM todayr Objective Last 24 Hour Vital Signs Date Time Temp Pulse Resp B/P (MAP) Pulse Ox O2 Delivery O2 Flow Rate FiO2 03/16/18 08:42 83 118/66 03/16/18 08:40 118/66 03/16/18 08:00 73 03/16/18 08:00 97.9 83 18 118/66 96 Room Air 97.9 03/16/18 04:00 98.0 80 18 122/59 96 Room Air 98.0 03/16/18 04:00 82 03/16/18 00:00 97.5 78 22 130/74 98 Room Air 97.5 03/16/18 00:00 74 03/15/18 20:00 97.7 77 19 115/63 98 Room Air 97.7 03/15/18 20:00 76 03/15/18 16:00 81 03/15/18 16:00 97.3 77 20 108/63 98 Room Air 97.3 03/15/18 12:00 79 03/15/18 12:00 97.3 77 19 124/70 97 Room Air 97.3 Intake and Output 03/15/18 03/16/18 19:00 07:00 Intake Total 1350 ml 600 ml Balance 1350 ml 600 ml Intake Oral 300 ml Free Water 360 ml IV Total 375 ml 600 ml Tube Feeding 315 ml # Voids 2 Laboratory Tests 03/16/18 07:50: White Blood Count 17.9H, Red Blood Count 3.55L, Hemoglobin 11.3L, Hematocrit 32.8L, Mean Corpuscular Volume 92, Mean Corpuscular Hemoglobin 31.9H, Mean Corpuscular Hemoglobin Concent 34.6, Red Cell Distribution Width 13.4, Platelet Count 299, Mean Platelet Volume 6.8, Neutrophils (%) (Auto) , Lymphocytes (%) ( Auto) , Monocytes (%) (Auto) , Eosinophils (%) (Auto) , Basophils (%) (Auto) , Neutrophils % (Manual) [Pending], Lymphocytes % (Manual) [Pending], Platelet Estimate [Pending], Platelet Morphology [Pending], Sodium Level 130L, Potassium Level 4.4, Chloride Level 99, Carbon Dioxide Level 26, Anion Gap 5, Blood Urea Nitrogen 12, Creatinine 0.7, Estimat Glomerular Filtration Rate > 60, Glucose Level 105, Calcium Level 8.6 Height (Feet): 5 Height (Inches): 4.00 Weight (Pounds): 97 General Appearance: alert EENT: normal ENT inspection Neck: supple Cardiovascular: normal rate Respiratory/Chest: decreased breath sounds Abdomen: normal bowel sounds, non tender, soft Extremities: non-tender Arun Lynn MD Mar 16, 2018 09:30
--- NOTE | 2018-03-16 11:19 | Diagnostic Imaging Report ---
EXAM: XR Chest, 1 View CLINICAL HISTORY: COUGH TECHNIQUE: Frontal view of the chest. COMPARISON: No relevant prior studies available. FINDINGS: Lungs: Basilar atelectasis/pneumonitis. No confluent consolidation. Query pulmonary emphysema. Pleural space: Blunting of the costophrenic angles. No pneumothorax. Heart: Unremarkable. No cardiomegaly. Mediastinum: Unremarkable. Bones/joints: Degenerative changes in the spine and shoulders. Vasculature: Left vascular line. IMPRESSION: Basilar atelectasis/pneumonitis. No confluent consolidation.
[2018-03-16 11:48] VITALS: BP 115/68
--- NOTE | 2018-03-16 12:39 | Consultation ---
History of Present Illness Present Illness Allergies: Coded Allergies: No Known Allergies (Unverified , 11/30/16) Medication History Scheduled Amlodipine Besylate* (Amlodipine Besylate*), 5 MG ORAL DAILY, (Reported) Aspirin Ec* (Aspirin Ec*), 81 MG ORAL DAILY, (Reported) Levofloxacin (Levofloxacin*), 500 MG ORAL DAILY, (Reported) Lisinopril* (Lisinopril*), 40 MG ORAL DAILY, (Reported) Metoclopramide Hcl* (Metoclopramide Hcl*), 5 MG ORAL THREE TIMES A DAY, ( Reported) Naloxegol Oxalate (Movantik), 25 MG PO DAILY, (Reported) Prednisone* (Prednisone*), 10 MG ORAL BID, (Reported) Tenofovir Disoproxil Fumarate* (Viread*), 300 MG ORAL DAILY, (Reported) Scheduled PRN Ondansetron Odt* (Zofran Odt*), 8 MG ORAL Q6H PRN for Nausea & Vomiting, ( Reported) Oxycodone Hcl Er* (Oxycontin*), 10 MG ORAL Q8HR PRN for For Pain, (Reported) Oxycodone Hcl* (Oxycodone Hcl*), 10 MG ORAL Q2H PRN for For Pain, (Reported) Discontinued Medications Amlodipine Besylate* (Amlodipine Besylate*), 5 MG GT DAILY, (Reported) Discontinued Reason: Pt had allergic rxn Atorvastatin Calcium* (Lipitor*), 10 MG ORAL DAILY, (Reported) Discontinued Reason: Pt stopped taking med Cholecalciferol (Vitamin D3)* (Vitamin D*), 2,000 UNITS ORAL DAILY, (Reported) Discontinued Reason: Pt stopped taking med Docusate Sodium (Stool Softener), 100 MG PO QHS PRN for Constipation, (Reported) Discontinued Reason: Pt stopped taking med Lisinopril* (Lisinopril*), 40 MG GT DAILY, (Reported) Discontinued Reason: Pt had allergic rxn Lovastatin (Lovastatin), 40 MG ORAL BEDTIME, (Reported) Discontinued Reason: Pt stopped taking med Metformin Hcl* (Metformin Hcl*), 850 MG ORAL DAILY, (Reported) Discontinued Reason: Pt stopped taking med Patient History Healthcare decision maker SELF Resuscitation status Full Code Advanced Directive on File Physical Exam Last 24 Hour Vital Signs Date Time Temp Pulse Resp B/P (MAP) Pulse Ox O2 Delivery O2 Flow Rate FiO2 03/16/18 11:48 97.6 77 17 115/68 96 Room Air 97.6 03/16/18 08:42 83 118/66 03/16/18 08:40 118/66 03/16/18 08:00 73 03/16/18 08:00 97.9 83 18 118/66 96 Room Air 97.9 03/16/18 04:00 98.0 80 18 122/59 96 Room Air 98.0 03/16/18 04:00 82 03/16/18 00:00 97.5 78 22 130/74 98 Room Air 97.5 03/16/18 00:00 74 03/15/18 20:00 97.7 77 19 115/63 98 Room Air 97.7 03/15/18 20:00 76 03/15/18 16:00 81 03/15/18 16:00 97.3 77 20 108/63 98 Room Air 97.3 Intake and Output 03/15/18 03/16/18 19:00 07:00 Intake Total 1350 ml 630 ml Balance 1350 ml 630 ml Intake Oral 300 ml Free Water 360 ml 30 ml IV Total 375 ml 600 ml Tube Feeding 315 ml # Voids 2 Laboratory Tests Test 03/16/18 07:50 White Blood Count 17.9 K/UL (4.8-10.8) H Red Blood Count 3.55 M/UL (4.70-6.10) L Hemoglobin 11.3 G/DL (14.2-18.0) L Hematocrit 32.8 % (42.0-52.0) L Mean Corpuscular Volume 92 FL (80-99) Mean Corpuscular Hemoglobin 31.9 PG (27.0-31.0) H Mean Corpuscular Hemoglobin Concent 34.6 G/DL (32.0-36.0) Red Cell Distribution Width 13.4 % (11.6-14.8) Platelet Count 299 K/UL (150-450) Mean Platelet Volume 6.8 FL (6.5-10.1) Neutrophils (%) (Auto) % (45.0-75.0) Lymphocytes (%) (Auto) % (20.0-45.0) Monocytes (%) (Auto) % (1.0-10.0) Eosinophils (%) (Auto) % (0.0-3.0) Basophils (%) (Auto) % (0.0-2.0) Differential Total Cells Counted 100 Neutrophils % (Manual) 95 % (45-75) H Lymphocytes % (Manual) 3 % (20-45) L Monocytes % (Manual) 2 % (1-10) Eosinophils % (Manual) 0 % (0-3) Basophils % (Manual) 0 % (0-2) Band Neutrophils 0 % (0-8) Platelet Estimate Adequate Platelet Morphology Normal Hypochromasia 1+ Sodium Level 130 MMOL/L (136-145) L Potassium Level 4.4 MMOL/L (3.5-5.1) Chloride Level 99 MMOL/L (98-107) Carbon Dioxide Level 26 MMOL/L (21-32) Anion Gap 5 mmol/L (5-15) Blood Urea Nitrogen 12 mg/dL (7-18) Creatinine 0.7 MG/DL (0.55-1.30) Estimat Glomerular Filtration Rate > 60 mL/min (>60) Glucose Level 105 MG/DL (74-106) Calcium Level 8.6 MG/DL (8.5-10.1) Height (Feet): 5 Height (Inches): 4.00 Weight (Pounds): 97 Medications Current Medications Medications (Trade) Dose Ordered Sig/Tatyana Route PRN Reason Start Time Stop Time Status Last Admin Dose Admin Amlodipine Besylate (Norvasc) 5 mg DAILY GT 03/16/18 09:00 04/15/18 08:59 03/16/18 08:42 Dextrose/ Electrolytes 1,000 ml @ 75 mls/hr [id number] IV 03/14/18 11:00 04/13/18 10:59 03/16/18 02:44 Docusate Sodium (Colace) 100 mg TWICE A DAY GT 03/15/18 18:00 04/14/18 17:59 03/16/18 08:39 Fentanyl (Duragesic) 1 patch Q72H TDERMAL 03/16/18 12:30 03/23/18 12:29 UNV Lisinopril (Prinivil) 40 mg DAILY GT 03/16/18 09:00 04/15/18 08:59 03/16/18 08:40 Methylnaltrexone Reyno (Relistor) 12 mg QOD SUBQ 03/17/18 09:00 04/16/18 08:59 Metoclopramide HCl (Reglan) 10 mg Q8HR IVP 03/15/18 14:00 04/14/18 13:59 03/16/18 05:58 Miscellaneous Medication (fentaNYL Destruction) 1 ea Q72H MISC 03/16/18 12:30 04/15/18 12:29 UNV Morphine Sulfate (Morphine Sulfate) 3 mg Q3H PRN IVP For Severe Pain 7-10 03/14/18 10:15 03/21/18 10:14 03/16/18 04:00 Naloxone HCl (Narcan) 0.1 mg PRN IV Sedation scale 3 or 4 03/16/18 12:30 UNV Oxycodone HCl (Roxicodone) 10 mg EVERY 3 HOURS PRN GT moderate pain 03/16/18 12:30 03/22/18 14:59 UNV Pantoprazole (Protonix) 40 mg EVERY 12 HOURS IVP 03/13/18 21:00 04/12/18 20:59 03/16/18 08:39 Polyethylene Glycol (Miralax) 17 gm BEDTIME ORAL 03/13/18 21:00 04/12/18 20:59 03/15/18 21:17 Prednisone (predniSONE) 10 mg BID GT 03/15/18 18:00 04/14/18 17:59 03/16/18 08:40 Assessment/Plan Assessment/Plan (1) Liver cancer (2) Intractable abdominal pain seen dictated. Vasiliy Weller Mar 16, 2018 12:39
[2018-03-16] MEDS ORDERED: Naloxone 0.4mg/ml Inj IV PRN (13:30)
[2018-03-16] MEDS ORDERED: fentaNYL Destruction MISC SCH (13:30)
[2018-03-16 16:00] VITALS: BP 104/59
[2018-03-16] MEDS: oxyCODONE 5mg IR tab GT PRN (17:20)
--- NOTE | 2018-03-16 18:15 | Consultation ---
DATE OF CONSULTATION: 03/16/2018 PAIN MANAGEMENT CONSULTATION REFERRING PHYSICIAN: Arun Lynn M.D. CONSULTING PHYSICIAN: Ramiro Shelby M.D. CHIEF COMPLAINT: Abdominal pain. HISTORY OF PRESENT ILLNESS: This is a 68-year-old male who is being seen on the telemetry floor of [facility] for initial comprehensive pain management consultation. The patient was admitted under the care of Dr. Lynn, being seen by Dr. Lopez as an outpatient, who is patient's oncologist, found to have liver cancer. Awaiting to get radiation and chemotherapy as an outpatient. However, having G-tube issues and was brought into the hospital for gastric lavage and started on opiate-induced constipation medication. At this time, the patient is on oxycodone 10 mg tablet every 3 hours scheduled through the G-tube as well as OxyContin 10 mg tablet every 12 hours, however, the patient is unable to tolerate tablets causing nausea, vomiting and the medication is unable to be crushed due to being a long-acting medication. At this time, due to this, we were consulted and the patient will have adequate pain control while here in the hospital. PAST MEDICAL HISTORY: Diabetes mellitus, hypertension, hepatitis B, hemorrhoids and liver cancer. PAST SURGICAL HISTORY: G-tube placement. SOCIAL HISTORY: History of smoking tobacco. Denies alcohol abuse and IV drug abuse. ALLERGIES: No known drug allergies. MEDICATIONS: Amlodipine, aspirin, levofloxacin, lisinopril, metoclopramide, Movantik, prednisone, Zofran, OxyContin and oxycodone. REVIEW OF SYSTEMS: Denies rash, fever, chills, sweating, dizziness, drowsiness, blurred vision, sore throat, or change in hearing. No bowel or bladder incontinence. No dysuria. He is complaining of difficulty swallowing causing nausea, vomiting, change in weight and intractable abdominal pain. PHYSICAL EXAMINATION: GENERAL: Alert, awake, and oriented. VITAL SIGNS: Blood pressure 115/68, heart rate 77, oxygen saturation is 96%, and respiratory rate 18, and temperature is 97.6 degrees Fahrenheit. HEENT: PERRLA. NECK: Range of motion is full in all directions. No tenderness. No adenopathy. LUNGS: Decreased breath sounds bilaterally. HEART: S1 and S2 regular. ABDOMEN: Tenderness to palpation. G-tube noted. BACK: Range of motion is decreased in flexion and extension. EXTREMITIES: Upper and lower extremity range of motion is decreased due to the patient's condition. No cyanosis. No clubbing. No edema. Sensory is reduced. Reflexes are unobtainable. No adenopathy. Severe cachexia noted. ASSESSMENT AND PLAN: This is a 68-year-old male with liver cancer and intractable abdominal pain. The patient will be discontinued off the OxyContin and the oxycodone will be changed to every 3 hours as needed for moderate pain. Continue morphine 3 mg IV every 3 hours as needed for severe pain. We will start the patient on fentanyl patch 25 mcg every 72 hours as well as start parameters to hold opiates for oversedation or systolic blood pressure below 90 or diastolic over 60 or respiratory rate below 12 or oxygen saturation below 90%. The patient's care was discussed with family at bedside. The patient was discussed with Dr. Shelby and Dr. Shelby concurred. We will follow the patient. Thank you very much for the courtesy of this consultation. Ramiro Shelby M.D. ROGELIO Taylor DR: JOE JOB#: [id number] CC: LELE
[2018-03-16 20:00] VITALS: BP 111/65
[2018-03-16] MEDS: Miralax 17gm pkt ORAL SCH (21:23)
[2018-03-17] VITALS (7 sets, daily range): BP systolic 106–130; BP diastolic 59–72
[2018-03-17] MEDS: D5 1/2NS w/KCl 20mEq 1,000 ML IV SCH (05:24)
[2018-03-17] MEDS: Metoclopramide 10mg/2ml Inj IVP SCH ×4 (05:26→23:59)
[2018-03-17] MEDS: oxyCODONE 5mg IR tab GT PRN ×4 (06:28→21:19)
--- NOTE | 2018-03-17 07:57 | General Progress Note ---
Assessment/Plan Assessment/Plan (1) Liver cancer (2) Intractable abdominal pain Patient will be continued on Fentanyl patch, Morphine and Oxycodone. D/w Dr. Shelby and he concurred. Subjective Date patient seen: Mar 17, 2018 Time patient seen: 07:15 - am Allergies: Coded Allergies: No Known Allergies (Unverified , 11/30/16) Subjective REVIEW OF SYSTEMS: Denies rash, fever, chills, sweating, dizziness, drowsiness, blurred vision, sore throat, or change in hearing. No bowel or bladder incontinence. No dysuria. He is complaining of difficulty swallowing causing nausea, vomiting, change in weight and intractable abdominal pain. SUBJECTIVE: Patient is in bed and reports that his pain is well tolerated. He has no new complaints. No SE noted. Objective Last 24 Hour Vital Signs Date Time Temp Pulse Resp B/P (MAP) Pulse Ox O2 Delivery O2 Flow Rate FiO2 03/17/18 04:00 77 03/17/18 04:00 97.7 75 14 124/72 98 Room Air 97.7 03/17/18 00:00 77 03/17/18 00:00 97.7 96 14 106/61 96 97.7 03/16/18 20:00 97.0 78 16 111/65 96 Room Air 97.0 03/16/18 20:00 78 03/16/18 16:00 80 03/16/18 16:00 98.6 76 18 104/59 95 Room Air 98.6 03/16/18 12:00 78 03/16/18 11:48 97.6 77 17 115/68 96 Room Air 97.6 03/16/18 08:42 83 118/66 03/16/18 08:40 118/66 03/16/18 08:00 73 03/16/18 08:00 97.9 83 18 118/66 96 Room Air 97.9 Intake and Output 03/16/18 03/17/18 19:00 07:00 Intake Total 435 ml 1180 ml Output Total 650 ml Balance 435 ml 530 ml Free Water 200 ml 200 ml IV Total 75 ml 900 ml Tube Feeding 160 ml 80 ml Output Urine Total 650 ml # Bowel Movements 1 1 Laboratory Tests 03/17/18 05:55: Sodium Level [Pending], Potassium Level [Pending], Chloride Level [Pending], Carbon Dioxide Level [Pending], Blood Urea Nitrogen [Pending], Creatinine [ Pending], Estimat Glomerular Filtration Rate [Pending], Glucose Level [Pending] , Calcium Level [Pending], Phosphorus Level [Pending] 03/17/18 07:10: White Blood Count [Pending], Red Blood Count [Pending], Hemoglobin [Pending], Hematocrit [Pending], Mean Corpuscular Volume [Pending], Mean Corpuscular Hemoglobin [Pending], Mean Corpuscular Hemoglobin Concent [Pending], Red Cell Distribution Width [Pending], Platelet Count [Pending], Mean Platelet Volume [ Pending], Neutrophils (%) (Auto) [Pending], Lymphocytes (%) (Auto) [Pending], Monocytes (%) (Auto) [Pending], Eosinophils (%) (Auto) [Pending], Basophils (%) (Auto) [Pending] Height (Feet): 5 Height (Inches): 4.00 Weight (Pounds): 97 Objective GENERAL: Alert, awake, and oriented. HEENT: PERRLA. NECK: Range of motion is full in all directions. No tenderness. No adenopathy. LUNGS: Decreased breath sounds bilaterally. HEART: S1 and S2 regular. ABDOMEN: Tenderness to palpation. G-tube noted. EXTREMITIES: No cyanosis. No clubbing. No edema. Vasiliy Weller Mar 17, 2018 07:57
[2018-03-17 08:06] LABS: HEMATOCRIT 30.1 % (42.0-52.0); HEMOGLOBIN 10.5 G/DL (14.2-18.0); MEAN CORPUSCULAR VOLUME 92 FL (80-99); PLATELET COUNT 241 K/UL (150-450); RED BLOOD COUNT 3.26 M/UL (4.70-6.10); RED CELL DISTRIBUTION WIDTH 13.2 % (11.6-14.8); WHITE BLOOD COUNT 15.5 K/UL (4.8-10.8)
[2018-03-17] MEDS: Docusate 100mg/10ml Liq GT SCH ×2 (08:20→17:09)
[2018-03-17] MEDS: Pantoprazole Inj IVP SCH ×2 (08:21→20:35)
[2018-03-17] MEDS: Lisinopril 20mg tab GT SCH (08:23)
[2018-03-17] MEDS: Relistor 12mg/0.6ml Vial SUBQ SCH ×2 (08:24→10:14)
[2018-03-17 08:29] LABS: ANION GAP 4 mmol/L (5-15); BLOOD UREA NITROGEN 12 mg/dL (7-18); CARBON DIOXIDE 26 MMOL/L (21-32); CHLORIDE 99 MMOL/L (98-107); CREATININE 0.7 MG/DL (0.55-1.30); PHOSPHORUS 3.1 MG/DL (2.5-4.9); POTASSIUM 4.5 MMOL/L (3.5-5.1); SODIUM 129 MMOL/L (136-145)
[2018-03-17] MEDS ORDERED: Relistor 12mg/0.6ml Vial SUBQ SCH ×2 (09:00)
[2018-03-17 09:08] LABS: APPEARANCE,URINE CLEAR; BILIRUBIN, URINE NEGATIVE (NEGATIVE); GLUCOSE, URINE (UA) NEGATIVE (NEGATIVE); KETONES,URINE NEGATIVE (NEGATIVE); LEUKOCYTE ESTERASE ,URINE NEGATIVE (NEGATIVE); NITRITE,URINE NEGATIVE (NEGATIVE); PH,URINE 6 (4.5-8.0); PROTEIN,URINE NEGATIVE (NEGATIVE); UROBILINOGEN,URINE 8 MG/DL (0.0-1.0)
[2018-03-17 09:22] LABS: COLOR,URINE YELLOW
--- NOTE | 2018-03-17 10:09 | GI Progress Note ---
Assessment/Plan Problems: (1) GI bleed ICD Codes: K92.2 - Gastrointestinal hemorrhage, unspecified SNOMED: 73781398 (2) Therapeutic opioid-induced constipation (OIC) ICD Codes: K59.03 - Drug induced constipation; T40.2X5A - Adverse effect of other opioids, initial encounter SNOMED: 431284926098884 (3) Malfunction of percutaneous endoscopic gastrostomy (PEG) tube ICD Codes: K94.23 - Gastrostomy malfunction SNOMED: 718700875 (4) Hepatitis B ICD Codes: B19.10 - Unspecified viral hepatitis B without hepatic coma SNOMED: 71999986 (5) HCC (hepatocellular carcinoma) ICD Codes: C22.0 - Liver cell carcinoma SNOMED: 980959882 (6) Dysphagia ICD Codes: R13.10 - Dysphagia, unspecified SNOMED: 23757649, 760352335 (7) Constipation ICD Codes: K59.00 - Constipation, unspecified SNOMED: 43102671 (8) Abdominal pain ICD Codes: R10.9 - Unspecified abdominal pain SNOMED: 98412672 (9) Severe malnutrition ICD Codes: E43 - Unspecified severe protein-calorie malnutrition SNOMED: 68901146 (10) Dehydration ICD Codes: E86.0 - Dehydration SNOMED: 48191247 Status: stable Status Narrative Discussed with Dr. Lynn. Assessment/Plan stable H&H d/w with ST >> outpatient video swallow Hg A1C >> WNL change TF to 2.0 at goal of 35 cont reglan relistor as needed bowel regimen repeat labs+ phos pain consult CXR ua GT site care daily/prn IV/PO hydration electrolyte correction fu labs needs outpatient H. Pylori treatment The patient was seen and examined at bedside and all new and available data was reviewed in the patients chart. I agree with the above findings, impression and plan. (Patient seen earlier today. Signature stamp does not reflect patient encounter time.). - Arun Lynn MD Subjective Subjective feels better had multiple large BMs Objective Last 24 Hour Vital Signs Date Time Temp Pulse Resp B/P (MAP) Pulse Ox O2 Delivery O2 Flow Rate FiO2 03/17/18 08:23 115/60 03/17/18 08:23 75 115/60 03/17/18 04:00 77 03/17/18 04:00 97.7 75 14 124/72 98 Room Air 97.7 03/17/18 00:00 77 03/17/18 00:00 97.7 96 14 106/61 96 97.7 03/16/18 20:00 97.0 78 16 111/65 96 Room Air 97.0 03/16/18 20:00 78 03/16/18 16:00 80 03/16/18 16:00 98.6 76 18 104/59 95 Room Air 98.6 03/16/18 12:00 78 03/16/18 11:48 97.6 77 17 115/68 96 Room Air 97.6 Intake and Output 03/16/18 03/17/18 19:00 07:00 Intake Total 435 ml 1180 ml Output Total 650 ml Balance 435 ml 530 ml Free Water 200 ml 200 ml IV Total 75 ml 900 ml Tube Feeding 160 ml 80 ml Output Urine Total 650 ml # Bowel Movements 1 1 Laboratory Tests Test 03/17/18 05:55 03/17/18 07:10 03/17/18 08:45 Sodium Level 129 MMOL/L (136-145) L Potassium Level 4.5 MMOL/L (3.5-5.1) Chloride Level 99 MMOL/L (98-107) Carbon Dioxide Level 26 MMOL/L (21-32) Anion Gap 4 mmol/L (5-15) L Blood Urea Nitrogen 12 mg/dL (7-18) Creatinine 0.7 MG/DL (0.55-1.30) Estimat Glomerular Filtration Rate > 60 mL/min (>60) Glucose Level 127 MG/DL (74-106) H Calcium Level 8.0 MG/DL (8.5-10.1) L Phosphorus Level 3.1 MG/DL (2.5-4.9) White Blood Count 15.5 K/UL (4.8-10.8) H Red Blood Count 3.26 M/UL (4.70-6.10) L Hemoglobin 10.5 G/DL (14.2-18.0) L Hematocrit 30.1 % (42.0-52.0) L Mean Corpuscular Volume 92 FL (80-99) Mean Corpuscular Hemoglobin 32.2 PG (27.0-31.0) H Mean Corpuscular Hemoglobin Concent 35.0 G/DL (32.0-36.0) Red Cell Distribution Width 13.2 % (11.6-14.8) Platelet Count 241 K/UL (150-450) Mean Platelet Volume 6.8 FL (6.5-10.1) Neutrophils (%) (Auto) % (45.0-75.0) Lymphocytes (%) (Auto) % (20.0-45.0) Monocytes (%) (Auto) % (1.0-10.0) Eosinophils (%) (Auto) % (0.0-3.0) Basophils (%) (Auto) % (0.0-2.0) Differential Total Cells Counted 100 Neutrophils % (Manual) 89 % (45-75) H Lymphocytes % (Manual) 3 % (20-45) L Monocytes % (Manual) 4 % (1-10) Eosinophils % (Manual) 3 % (0-3) Basophils % (Manual) 0 % (0-2) Band Neutrophils 1 % (0-8) Platelet Estimate Adequate Platelet Morphology Normal Hypochromasia 1+ Urine Color Yellow Urine Appearance Clear Urine pH 6 (4.5-8.0) Urine Specific Pace 1.005 (1.005-1.035) Urine Protein Negative (NEGATIVE) Urine Glucose (UA) Negative (NEGATIVE) Urine Ketones Negative (NEGATIVE) Urine Occult Blood Negative (NEGATIVE) Urine Nitrite Negative (NEGATIVE) Urine Bilirubin Negative (NEGATIVE) Urine Urobilinogen 8 MG/DL (0.0-1.0) H Urine Leukocyte Esterase Negative (NEGATIVE) Urine RBC 0-2 /HPF (0 - 0) H Urine WBC 0 /HPF (0 - 0) Urine Squamous Epithelial Cells Occasional /LPF Urine Bacteria Occasional /HPF (NONE) Height (Feet): 5 Height (Inches): 4.00 Weight (Pounds): 97 General Appearance: WD/WN, no apparent distress, alert Cardiovascular: normal rate Respiratory/Chest: normal breath sounds, no respiratory distress Abdominal Exam: normal bowel sounds, non tender, soft Extremities: non-tender Flori Fernández NP Mar 17, 2018 10:09
[2018-03-17] MEDS ORDERED: Sodium Chloride 1gm Tab ORAL SCH (11:00)
[2018-03-17] MEDS: Heparin 5000 units/ml inj SUBQ SCH (20:36)
[2018-03-17] MEDS: Miralax 17gm pkt ORAL SCH (20:37)
[2018-03-18] VITALS: BP 112/59
[2018-03-18] MEDS: oxyCODONE 5mg IR tab GT PRN ×4 (03:04→12:42)
[2018-03-18 04:00] VITALS: BP 106/66
[2018-03-18] MEDS: Metoclopramide 10mg/2ml Inj IVP SCH ×3 (06:08→17:05)
[2018-03-18 07:57] VITALS: BP 109/56
[2018-03-18 07:58] LABS: BASOPHILS % (AUTO) 0.4 % (0.0-2.0); EOSINOPHILS % (AUTO) 2.1 % (0.0-3.0); HEMATOCRIT 28.2 % (42.0-52.0); HEMOGLOBIN 9.5 G/DL (14.2-18.0); MEAN CORPUSCULAR VOLUME 93 FL (80-99); MONOCYTES % (AUTO) 6.4 % (1.0-10.0); NEUTROPHILS % (AUTO) 83.1 % (45.0-75.0); PLATELET COUNT 248 K/UL (150-450); RED BLOOD COUNT 3.04 M/UL (4.70-6.10); RED CELL DISTRIBUTION WIDTH 13.6 % (11.6-14.8); WHITE BLOOD COUNT 12.2 K/UL (4.8-10.8)
[2018-03-18 08:06] LABS: ANION GAP 4 mmol/L (5-15); BLOOD UREA NITROGEN 14 mg/dL (7-18); CALCIUM 8.2 MG/DL (8.5-10.1); CARBON DIOXIDE 27 MMOL/L (21-32); CHLORIDE 100 MMOL/L (98-107); CREATININE 0.7 MG/DL (0.55-1.30); PHOSPHORUS 3.4 MG/DL (2.5-4.9); POTASSIUM 4.3 MMOL/L (3.5-5.1); SODIUM 131 MMOL/L (136-145)
--- NOTE | 2018-03-18 08:09 | General Progress Note ---
Assessment/Plan Assessment/Plan (1) Liver cancer (2) Intractable abdominal pain Patient will be continued on Fentanyl patch, Morphine and Oxycodone. D/w Dr. Shelby and he concurred. Subjective Date patient seen: Mar 18, 2018 Time patient seen: 07:00 - am Allergies: Coded Allergies: No Known Allergies (Unverified , 11/30/16) Subjective REVIEW OF SYSTEMS: Denies rash, fever, chills, sweating, dizziness, drowsiness, blurred vision, sore throat, or change in hearing. No bowel or bladder incontinence. No dysuria. He is complaining of difficulty swallowing causing nausea, vomiting, change in weight and intractable abdominal pain. SUBJECTIVE: Patient laying in bed and reports that his pain is at a 6/10 tolerated on the Fentanyl patch and Oxycodone. He has no new complaints. Objective Last 24 Hour Vital Signs Date Time Temp Pulse Resp B/P (MAP) Pulse Ox O2 Delivery O2 Flow Rate FiO2 03/18/18 07:57 97.0 72 18 109/56 94 Nasal Cannula 2.0 97.0 03/18/18 04:00 97.7 73 18 106/66 95 Trach Collar 97.7 03/18/18 04:00 73 03/18/18 00:00 97.5 70 16 112/59 99 97.5 03/18/18 00:00 68 03/17/18 23:57 99 Nasal Cannula 1.0 24 03/17/18 23:57 Nasal Cannula 1.0 98 03/17/18 20:00 98.1 73 16 121/59 98 Room Air 98.1 03/17/18 20:00 77 03/17/18 18:33 17 130/72 98 Nasal Cannula 2.0 03/17/18 16:00 97.5 72 14 115/64 97 Room Air 97.5 03/17/18 16:00 73 03/17/18 12:00 97.3 74 18 126/62 97 Room Air 97.3 03/17/18 12:00 77 03/17/18 08:23 115/60 03/17/18 08:23 75 115/60 Intake and Output 03/17/18 03/18/18 19:00 07:00 Intake Total 75 ml 890 ml Output Total 400 ml 275 ml Balance -325 ml 615 ml IV Total 75 ml 750 ml Tube Feeding 140 ml Output Urine Total 400 ml 275 ml # Voids 3 # Bowel Movements 2 Laboratory Tests 03/17/18 08:45: Urine Color Yellow, Urine Appearance Clear, Urine pH 6, Urine Specific Pace 1.005, Urine Protein Negative, Urine Glucose (UA) Negative, Urine Ketones Negative, Urine Occult Blood Negative, Urine Nitrite Negative, Urine Bilirubin Negative, Urine Urobilinogen 8H, Urine Leukocyte Esterase Negative, Urine RBC 0- 2H, Urine WBC 0, Urine Squamous Epithelial Cells Occasional, Urine Bacteria Occasional 03/18/18 07:20: White Blood Count [Pending], Red Blood Count [Pending], Hemoglobin [Pending], Hematocrit [Pending], Mean Corpuscular Volume [Pending], Mean Corpuscular Hemoglobin [Pending], Mean Corpuscular Hemoglobin Concent [Pending], Red Cell Distribution Width [Pending], Platelet Count [Pending], Mean Platelet Volume [ Pending], Neutrophils (%) (Auto) [Pending], Lymphocytes (%) (Auto) [Pending], Monocytes (%) (Auto) [Pending], Eosinophils (%) (Auto) [Pending], Basophils (%) (Auto) [Pending], Sodium Level [Pending], Potassium Level [Pending], Chloride Level [Pending], Carbon Dioxide Level [Pending], Blood Urea Nitrogen [Pending], Creatinine [Pending], Estimat Glomerular Filtration Rate [Pending], Glucose Level [Pending], Calcium Level [Pending], Phosphorus Level [Pending], Magnesium Level [Pending] Height (Feet): 5 Height (Inches): 4.00 Weight (Pounds): 97 Objective GENERAL: Alert, awake, and oriented. HEENT: PERRLA. NECK: Range of motion is full in all directions. No tenderness. No adenopathy. LUNGS: Decreased breath sounds bilaterally. HEART: S1 and S2 regular. ABDOMEN: Tenderness to palpation. G-tube noted. EXTREMITIES: No cyanosis. No clubbing. No edema. Vasiliy Weller Mar 18, 2018 08:09
[2018-03-18] MEDS: Docusate 100mg/10ml Liq GT SCH ×2 (08:27→17:05)
[2018-03-18] MEDS: Lisinopril 20mg tab GT SCH (08:27)
[2018-03-18] MEDS: Pantoprazole Inj IVP SCH (08:28)
[2018-03-18] MEDS: Heparin 5000 units/ml inj SUBQ SCH (08:29)
[2018-03-18 08:30] VITALS: BP 123/64
[2018-03-18 12:00] VITALS: BP 121/60
[2018-03-18 15:26] VITALS: BP 112/61
--- NOTE | 2018-03-18 16:15 | Discharge Summary ---
Discharge Summary Hospital Course Date of Admission Mar 12, 2018 at 18:24 Date of Discharge 03/18/18 Admitting Diagnosis UPPER GI BLEED, G TUBE MALFUNCTION HPI Son Diana Alejandro is a 68 year old male who was admitted on Mar 12, 2018 at 18:24 for Upper Gi Bleed, G Tube Malfunction Consultations Pain Management >> [facility]. Hospital Course 68 year old male patient with history of liver cancer pending radiation and amino acid therapy s/p PEG last saturday that began to have bleeding from inside and around the GT site at home. The patient was brought in the ED and admitted as an inpatient. During this time, the patient was maintain NPO and started on a protonix gtt. Hgb levels were drawn, stable at the time and then was trend through admission. The GT site bleed improved, and the patient's diet was advanced as tolerated. In addition, the patient presented with unrelieved generalized pain and thus pain management was consulted. On top of his current regime of oxycotin and morphine, the patient was given a fentanyl patch 25mcg q72 hours. It was noted that the patient suffered from severe opioid induced constipation, per patient had no BM x 12 days. Relistor was started for the patient allowing the patient to have multiple BMs during his hospital stay. The patient also was not tolerating any GT feedings at the time with constant high residuals. Patient was finally able to tolerate low feedings of TwoCal in which they were going to be discharged with home health. Discharge course. Patient stable for discharge with home health. hotel recreational facilities manager contacted and d/w with patient's family. The family was educated on use of the GT care and feedings. Patient will be both on bolus vs continuos feeds at home as tolerated. The patient will follow up with her primary care Dr. Lopez to continue any pain management and follow up with us for repeat Breath Test for H. Pylori and any concerns regarding the feeding tube. Patient to continue all home medications, will add Relistor to home medications pending prior authorization. The patient's pain is still present, but tolerable at this time. Recommend continue of Fentanyl patch per pain mgmt, but will be reevaluated by primary. Patient family instructed to return to ED if patient is unable to tolerate any foods, or has severe episodes of emesis. Discharge Condition Upon Discharge: stable Discharge Disposition Patient was discharged to Home with Home Health(06) See nursing medication reconciliation list. Discharge Diagnoses: (1) Severe malnutrition (2) Dehydration (3) Therapeutic opioid-induced constipation (OIC) (4) Abdominal pain (5) GI bleed (6) HCC (hepatocellular carcinoma) (7) UGIB (upper gastrointestinal bleed) (8) Malfunction of gastrostomy tube (9) Gastroparesis Discharge Instructions Discharge Instructions Follow up with: [facility] Upon Discharge: speech therapy Diet: tube feeding Activity: as tolerated Flori Fernández NP Mar 18, 2018 16:15
[2018-03-18] MEDS ORDERED: fentaNYL Destruction MISC SCH (17:00)
--- NOTE | 2018-03-19 01:45 | Consultation ---
DATE OF CONSULTATION: 03/18/2018 NOTE: POOR AUDIO HEMATOLOGY/ONCOLOGY CONSULTATION CONSULTING PHYSICIAN: Garo Cline M.D. REQUESTING PHYSICIAN: Arun Lynn M.D. REASON FOR CONSULTATION: Evaluation of anemia. IDENTIFYING DATA: Dear Dr. Lynn, The patient is a pleasant 68-year-old male with past medical history, which is significant for hypertension, hepatitis B, diabetes mellitus, liver cancer, hemorrhoids, admitted to [facility] ____ for pain management evaluation under the care of Dr. Lynn. He was seen by Dr. Lopez. The patient is radiation and chemotherapy as an outpatient, at this time covering for Dr. Lopez. The patient is on OxyContin G-tube, however, the patient is unable to tolerate the tablets causing nausea and vomiting. Medication is unable to being crushed. Hematology Service was consulted for further evaluation and treatment. PAST MEDICAL HISTORY: Hepatitis B, hypertension, diabetes mellitus, liver cancer, and hemorrhoids. PAST SURGICAL HISTORY: G-tube placement. ALLERGIES: No known drug allergies. MEDICATIONS: Levofloxacin, aspirin, , Zofran, OxyContin, and oxycodone. SOCIAL HISTORY: History of smoking tobacco. No illicit drug use. No IV drug use. REVIEW OF SYSTEMS: CONSTITUTIONAL: No fevers, chills, or night sweats. HEENT: No headache, hearing or vision changes. BREASTS: No lumps, pain, or discharge. PULMONARY: No cough, sputum, or shortness of breath. GASTROINTESTINAL: No nausea, vomiting, or diarrhea. GENITOURINARY: No dysuria, frequency, or urgency. MUSCULOSKELETAL: No joint swelling, muscle pain, or trauma. PHYSICAL EXAMINATION: VITAL SIGNS: Reviewed. GENERAL: No distress. LUNGS: Decreased breath sounds. CARDIOVASCULAR: Regular rate. No S3, S4. ABDOMEN: Soft. G-tube. EXTREMITIES: No cyanosis, swelling, or edema noted. LABORATORY DATA: WBC 12.2, hemoglobin 9.5, hematocrit 28, and platelet count . Chemistry reviewed. . Vitamin B12 , ferritin 625. Tumor markers are pending at this time. Imaging pending as well. We will order for AFP, CA 19-9. ASSESSMENT AND RECOMMENDATIONS: 1. Liver cancer. Continue to follow Dr. Zainab Lopez. Obtain tumor markers. Follow up with Dr. Lopez as an outpatient. 2. Anemia due to underlying chronic disease. Continue to closely monitor. 3. Dysphagia, status post PEG . 4. Anemia due to upper gastrointestinal bleed. 5. Leukocytosis, likely secondary to reactive process. 6. Dehydration . 7. Malnutrition . I appreciate the consultation. Garo Cline M.D. DR: Ben JOB#: [id number] CC:
[2018-03-19] MEDS ORDERED: fentaNYL Destruction MISC SCH (13:30)
== END 2018-03-18 17:39 | disposition home health service (06) | DRG 377 ==
LOC: EMR 18:21 → 2E 18:24 → EDBEDREQ 18:24 → 2E 22:19
DX: K92.2 Gastrointestinal hemorrhage, unspecified (principal); E43 Unspecified severe protein-calorie malnutrition; C22.0 Liver cell carcinoma; K94.23 Gastrostomy malfunction; B19.10 Unspecified viral hepatitis B without hepatic coma; E86.0 Dehydration; K59.03 Drug induced constipation; T40.2X5A Adverse effect of other opioids, initial encounter; K31.84 Gastroparesis; E11.9 Type 2 diabetes mellitus without complications; R10.9 Unspecified abdominal pain; Z86.19 Personal history of other infectious and parasitic diseases
CPT/HCPCS: 36415; 71045; 74018; 80048; 80053; 81001; 82248; 82607; 82728; 82746; 83036; 83540; 83550; 83690; 83735; 84100; 84439; 84443; 85007; 85025; 85610; 85730; 86850; 86900; 86901; 93005; 94003; 94150; 94760; 99285; J2250; J2405; J2765